=== PATIENT | male | born 1985 | race Caucasian/White ===

== ENCOUNTER 2017-06-03 14:42 | Emergency (ER) | payer MEDICARE, OTHER ==
[~2017-06-03] VITALS: Ht 180.3 cm; Wt 181.0 kg
[~2017-06-03 14:42] MED LIST: ALPR2TAB2 PO; ALPR2TAB7 PO; CLIN-80 PO; CLON-527 PO; CLON-528 PO; CYCL-1 PO; HALO1TAB PO; HALO2TAB PO; HALO5TAB PO; HYDR-569 PO; NAPR500T6 PO; OLAN5TAB26 PO; PHE12.5T PO; QUET25TA PO; QUET50TA PO; TRAZ-143 PO
[2017-06-03] MEDS ORDERED: IBUP-1984 PO (15:26)
[2017-06-03 15:37] VITALS: BP 144/87
== END 2017-06-03 15:42 | disposition home or self-care (01) ==
LOC: ER 14:42
DX: S93.401A Sprain of unspecified ligament of right ankle, initial encounter (principal); F12.10 Cannabis abuse, uncomplicated; G89.29 Other chronic pain; W01.0XXA Fall on same level from slipping, tripping and stumbling without subsequent striking against object, initial encounter; Y93.89 Activity, other specified; Y92.89 Other specified places as the place of occurrence of the external cause; Y99.8 Other external cause status; Z56.0 Unemployment, unspecified; Z98.890 Other specified postprocedural states
CPT/HCPCS: 73600; 99284; A6449

== ENCOUNTER 2017-09-15 12:51 | Emergency (ER) | payer MEDICARE, OTHER ==
[~2017-09-15] VITALS: Ht 177.8 cm; Wt 163.0 kg
[2017-09-15 13:02] VITALS: BP 140/98
== END 2017-09-15 13:38 | disposition home or self-care (01) ==
LOC: ER 12:52
DX: F41.9 Anxiety disorder, unspecified (principal); F20.9 Schizophrenia, unspecified; F32.9 Major depressive disorder, single episode, unspecified; G89.29 Other chronic pain; F12.10 Cannabis abuse, uncomplicated; F11.10 Opioid abuse, uncomplicated; Z56.0 Unemployment, unspecified; Z72.0 Tobacco use; Z88.8 Allergy status to other drugs, medicaments and biological substances; Z79.899 Other long term (current) drug therapy
CPT/HCPCS: 99284

== ENCOUNTER 2018-04-24 13:08 | Emergency (ER) | payer MEDICARE ==
[~2018-04-24] VITALS: Ht 177.8 cm; Wt 165.0 kg
[~2018-04-24 13:08] MED LIST changes: -CLIN-80 PO; +CLIN300C85 PO; +HYDR-4383 PO; -HYDR-569 PO; -TRAZ-143 PO; +TRAZ-218 PO
[2018-04-24 13:23] VITALS: BP 166/80
[2018-04-24] MEDS ORDERED: LORazepam 0.5 MG tablet PO PRN (13:40)
[2018-04-24] MEDS ORDERED: LORA0.5T PO (13:55)
== END 2018-04-24 14:05 | disposition home or self-care (01) ==
LOC: ER 13:08
DX: F41.9 Anxiety disorder, unspecified (principal); F32.9 Major depressive disorder, single episode, unspecified; F20.9 Schizophrenia, unspecified; F12.90 Cannabis use, unspecified, uncomplicated; F11.90 Opioid use, unspecified, uncomplicated; G89.29 Other chronic pain; Z56.0 Unemployment, unspecified; Z98.890 Other specified postprocedural states; Z88.1 Allergy status to other antibiotic agents; Z79.899 Other long term (current) drug therapy
CPT/HCPCS: 99284

== ENCOUNTER 2018-05-03 14:40 | Emergency (ER) | payer MEDICARE, MEDICAID ==
[~2018-05-03] VITALS: Ht 177.8 cm; Wt 161.0 kg
[~2018-05-03 14:40] MED LIST changes: +LORA0.5T PO
[2018-05-03] MEDS ORDERED: LORazepam 1 MG tablet PO ONE (18:40)
[2018-05-03 18:54] VITALS: BP 159/78
== END 2018-05-03 19:00 | disposition home or self-care (01) ==
LOC: ER 14:40
DX: F41.9 Anxiety disorder, unspecified (principal); G89.29 Other chronic pain; F32.9 Major depressive disorder, single episode, unspecified; F20.9 Schizophrenia, unspecified; F12.90 Cannabis use, unspecified, uncomplicated; F11.90 Opioid use, unspecified, uncomplicated; Z56.0 Unemployment, unspecified; Z98.890 Other specified postprocedural states; Z88.1 Allergy status to other antibiotic agents; Z79.2 Long term (current) use of antibiotics; Z79.899 Other long term (current) drug therapy
CPT/HCPCS: 99284

== ENCOUNTER 2018-08-07 12:15 | Emergency (ER) | payer MEDICARE, MEDICAID ==
[~2018-08-07] VITALS: Ht 180.3 cm; Wt 177.7 kg
[~2018-08-07 12:15] MED LIST changes: +CLIN-96 PO; -CLIN300C85 PO; -LORA0.5T PO
[2018-08-07 12:21] VITALS: BP 155/84
[2018-08-07] MEDS ORDERED: LIDOcaine 1% 30ml preserv. free vial IJ ONE (12:55)
== END 2018-08-07 13:11 | disposition home or self-care (01) ==
LOC: ER 12:16
DX: M79.605 Pain in left leg (principal); M79.604 Pain in right leg; E11.9 Type 2 diabetes mellitus without complications; G89.29 Other chronic pain; M54.9 Dorsalgia, unspecified; F12.90 Cannabis use, unspecified, uncomplicated; F11.90 Opioid use, unspecified, uncomplicated; Z56.0 Unemployment, unspecified; Z88.1 Allergy status to other antibiotic agents; Z79.4 Long term (current) use of insulin
CPT/HCPCS: 99281; J3490; 99282

== ENCOUNTER → 2018-12-27 | Emergency (ER) | payer MEDICARE, MEDICAID ==
[~2018-12-27] VITALS: Ht 179.1 cm; Wt 172.7 kg
[~2018-12-27] MED LIST changes: +DOXY100C2 PO; +DOXYCYCLINE 100MG CAPSULE PO STA; +INSU100I31 SQ; +LIDOcaine 1% w/epiNEPHrine 1:200,000 30ml vial IM ONE; +LURA80TA3 PO; +METF500T PO; +NALO4SPR NAS; -PHE12.5T PO; +PROM12.512 PO; +SULF1TAB49 PO; +TETanus/Pertussis (Acell)/Diphther VAC/PF (Tdap-Adult) 0.5ml syringe IM ONE; -TRAZ-218 PO; +TRAZ-251 PO; +sulfamethoxazole/trimethoprim DS (800/160mg) tablet PO ONE
--- NOTE | 2018-12-27 21:16 | NUR ---
PT HAS BEEN CLEAN FROM HEROIN FOR A YEAR AND HALF, THEN STARTED USING HEROIN AGAIN ABOUT A MONTH AGO.. PT HAVING AUDIO HALLUCINATION. PT SMOKED HEROIN BEFORE HE ARRIVED TO ER. PT C/O EXTREME ANXIETY AT THIS TIME
[2018-12-27 22:09] VITALS: BP 150/74
== END | disposition home or self-care (01) ==
LOC: ER 20:45
DX: L02.413 Cutaneous abscess of right upper limb (principal); L02.415 Cutaneous abscess of right lower limb; L03.113 Cellulitis of right upper limb; L03.115 Cellulitis of right lower limb; E11.9 Type 2 diabetes mellitus without complications; G89.29 Other chronic pain; F32.9 Major depressive disorder, single episode, unspecified; F41.9 Anxiety disorder, unspecified; F52.9 Unspecified sexual dysfunction not due to a substance or known physiological condition; F11.90 Opioid use, unspecified, uncomplicated; Z88.1 Allergy status to other antibiotic agents; Z79.899 Other long term (current) drug therapy; Z79.2 Long term (current) use of antibiotics; Z56.0 Unemployment, unspecified; Z98.890 Other specified postprocedural states; Z87.09 Personal history of other diseases of the respiratory system
CPT/HCPCS: 10061; 82948; 90471; 99284

== ENCOUNTER 2019-01-13 11:15 | Emergency (ER) | payer MEDICARE, MEDICAID ==
[~2019-01-13] VITALS: Ht 179.1 cm; Wt 172.0 kg
[~2019-01-13 11:15] MED LIST changes: -DOXY100C2 PO; -DOXYCYCLINE 100MG CAPSULE PO STA; -INSU100I31 SQ; -LIDOcaine 1% w/epiNEPHrine 1:200,000 30ml vial IM ONE; -LURA80TA3 PO; -METF500T PO; -SULF1TAB49 PO; -TETanus/Pertussis (Acell)/Diphther VAC/PF (Tdap-Adult) 0.5ml syringe IM ONE; -sulfamethoxazole/trimethoprim DS (800/160mg) tablet PO ONE
[2019-01-13 11:27] VITALS: BP 146/83
[2019-01-13] MEDS ORDERED: INSU100I31 SQ (12:29)
[2019-01-13] MEDS ORDERED: METF500T PO (12:29)
[2019-01-13] MEDS ORDERED: LURA80TA3 PO (12:29)
== END 2019-01-13 12:42 | disposition home or self-care (01) ==
LOC: ER 11:16
DX: E11.9 Type 2 diabetes mellitus without complications (principal); Z76.0 Encounter for issue of repeat prescription; G89.29 Other chronic pain; F17.200 Nicotine dependence, unspecified, uncomplicated; F11.90 Opioid use, unspecified, uncomplicated; Z56.0 Unemployment, unspecified; Z98.890 Other specified postprocedural states; Z88.1 Allergy status to other antibiotic agents; Z79.899 Other long term (current) drug therapy; Z79.4 Long term (current) use of insulin
CPT/HCPCS: 82948; 99283

== ENCOUNTER 2019-03-18 03:44 | Emergency (ER) | payer MEDICARE, MEDICAID ==
[~2019-03-18] VITALS: Ht 172.7 cm; Wt 153.0 kg
[~2019-03-18 03:44] MED LIST changes: +CLIN-90 PO; -CLIN-96 PO; +INSU100I31 SQ; +LURA80TA3 PO
[2019-03-18] MEDS ORDERED: LORazepam 2 mg/ml vial IV ONE ×3 (04:05→05:25)
[2019-03-18] MEDS ORDERED: normal saline 1000ML IV soln IVB ONE ×2 (04:05)
[2019-03-18] MEDS ORDERED: diphenhydrAMINE 50 mg/ml inj IV ONE (04:05)
[2019-03-18] MEDS ORDERED: metoclopramide 5 mg/ml inj IV ONE (04:05)
[2019-03-18] MEDS ORDERED: buprenorphine/naloxone 8mg/2mg SL tablet SL STA (04:08)
[2019-03-18] MEDS ORDERED: buprenorphine/naloxone 8MG-2MG SUBlingual film SL STA (04:48)
[2019-03-18] MEDS ORDERED: ziprasidone 20mg capsule PO ONE (04:50)
[2019-03-18 04:55] LABS: BASOPHILS # (AUTO) 0.1 X10'3 (0-0.2); BASOPHILS % (AUTO) 0.9 % (0-1); EOSINOPHILS # (AUTO) 0.1 X10'3 (0-0.9); EOSINOPHILS % (AUTO) 0.8 % (0-6); HEMOGLOBIN 14.6 g/dl (14.0-17.9); LYMPHOCYTES # (AUTO) 2.4 X10'3 (1.1-4.8); MEAN CORPUSCULAR VOLUME 91.1 FL (78-98); MEAN PLATELET VOLUME 8.8 FL (7.4-10.4); MONOCYTES # (AUTO) 0.8 X10'3 (0-0.9); MONOCYTES % (AUTO) 7.6 % (2-12); NEUTROPHILS # (AUTO) 7.3 X10'3 (1.8-7.7); NEUTROPHILS % (AUTO) 68.7 % (42-75); PLATELET COUNT 340 X10'3 (140-440); RED BLOOD COUNT 4.72 X10'6 (4.70-6.10); RED CELL DISTRIBUTION WIDTH 14.4 % (11.5-14.5); WHITE BLOOD COUNT 10.7 X10'3 (4.5-11.0)
[2019-03-18 04:57] LABS: ALANINE AMINOTRANSFERASE 51 U/L (12-78); ALBUMIN 3.5 G/DL (3.4-5.0); ALBUMIN/GLOBULIN RATIO 0.9 (1.1-1.5); ALKALINE PHOSPHATASE 84 IU/L (46-116); ANION GAP 11 (8-16); ASPARTATE AMINO TRANSFERASE 33 U/L (10-37); BILIRUBIN,TOTAL 0.5 MG/DL (0.1-1.0); BLOOD UREA NITROGEN 14 MG/DL (7-18); BUN/CREATININE RATIO 18.2 (5.4-32.0); CHLORIDE 106 MMOL/L (99-107); CREATININE 0.77 MG/DL (0.60-1.10); GLUCOSE 134 MG/DL (70-104); LIPASE 108 U/L (73-393); POTASSIUM 3.8 MMOL/L (3.5-5.1); SODIUM 142 MMOL/L (135-145); TOTAL CARBON DIOXIDE 25.4 MMOL/L (24-32); TOTAL PROTEIN 7.5 G/DL (6.4-8.2); eGFR > 90 ML/MIN
[2019-03-18] MEDS ORDERED: CLON0.2T PO (05:05)
[2019-03-18] MEDS ORDERED: ONDA4TAB12 PO (05:05)
[2019-03-18] MEDS ORDERED: benztropine 1 mg/ml 2ml ampule IV ONE (05:25)
--- NOTE | 2019-03-18 05:37 | NUR ---
Pt's mother contact info: [phone] (Ruth)
--- NOTE | 2019-03-18 05:45 | NUR ---
Two call outs made to Ruth dixon patient and need for transportation. Awaiting call back.
--- NOTE | 2019-03-18 05:52 | NUR ---
Spoke with patient regarding current living arrangements. He has been living out on the streets. Information re the [facility] provided and patient affirms that he is familiar with them. He understands that the [facility] offers housing within specific time frame. Pt. agrees to have a ride to location near/around the [facility] for now.
== END 2019-03-18 06:14 | disposition home or self-care (01) ==
LOC: ER 03:45
DX: F11.23 Opioid dependence with withdrawal (principal); R11.2 Nausea with vomiting, unspecified; R19.7 Diarrhea, unspecified; E11.9 Type 2 diabetes mellitus without complications; G89.29 Other chronic pain; F41.9 Anxiety disorder, unspecified; F32.9 Major depressive disorder, single episode, unspecified; F20.9 Schizophrenia, unspecified; F17.210 Nicotine dependence, cigarettes, uncomplicated; Z56.0 Unemployment, unspecified; Z88.1 Allergy status to other antibiotic agents; Z79.4 Long term (current) use of insulin; Z79.899 Other long term (current) drug therapy
CPT/HCPCS: 36415; 80053; 83690; 85025; 96361; 96374; 96375; 96376; 99283; J0515; J1200; J2060; J2765; J7030

== ENCOUNTER 2019-03-29 20:39 | Emergency (ER) | payer MEDICARE, MEDICAID ==
[~2019-03-29] VITALS: Ht 177.8 cm; Wt 151.9 kg
[~2019-03-29 20:39] MED LIST changes: +CLON0.2T PO; +ONDA4TAB12 PO
[2019-03-29 20:53] VITALS: BP 147/78
== END 2019-03-29 21:46 | disposition home or self-care (01) ==
LOC: ER 20:40
DX: Z02.89 Encounter for other administrative examinations (principal); E11.9 Type 2 diabetes mellitus without complications; G89.29 Other chronic pain; F41.9 Anxiety disorder, unspecified; F32.9 Major depressive disorder, single episode, unspecified; F20.9 Schizophrenia, unspecified; F11.90 Opioid use, unspecified, uncomplicated; Z56.0 Unemployment, unspecified; Z98.890 Other specified postprocedural states; Z79.899 Other long term (current) drug therapy; Z88.1 Allergy status to other antibiotic agents; Z79.4 Long term (current) use of insulin
CPT/HCPCS: 99281

== ENCOUNTER 2019-05-13 13:44 | Emergency (ER) | payer MEDICARE, MEDICAID ==
[~2019-05-13] VITALS: Ht 179.1 cm; Wt 148.0 kg
[2019-05-13 14:06] VITALS: BP 130/79
[2019-05-13] MEDS ORDERED: BACDS PO (15:13)
[2019-05-13] MEDS ORDERED: LURA80TA3 PO (15:13)
== END 2019-05-13 15:37 | disposition home or self-care (01) ==
LOC: ER 13:44
DX: L03.114 Cellulitis of left upper limb (principal); E11.9 Type 2 diabetes mellitus without complications; G89.29 Other chronic pain; F41.9 Anxiety disorder, unspecified; F32.9 Major depressive disorder, single episode, unspecified; G47.30 Sleep apnea, unspecified; F11.90 Opioid use, unspecified, uncomplicated; Z76.0 Encounter for issue of repeat prescription; Z56.0 Unemployment, unspecified; Z88.1 Allergy status to other antibiotic agents; Z79.2 Long term (current) use of antibiotics; Z79.4 Long term (current) use of insulin; Z79.899 Other long term (current) drug therapy
CPT/HCPCS: 99284

== ENCOUNTER 2019-06-06 00:11 | Emergency (ER) | payer MEDICARE, MEDICAID ==
[~2019-06-06] VITALS: Ht 177.8 cm; Wt 146.6 kg
[2019-06-06 00:26] VITALS: BP 129/83
[2019-06-06] MEDS ORDERED: GABA-532 PO (00:46)
[2019-06-06] MEDS ORDERED: gabapentin 300mg capsule PO ONE (00:55)
== END 2019-06-06 00:58 | disposition home or self-care (01) ==
LOC: ER 00:12
DX: G25.81 Restless legs syndrome (principal); E11.9 Type 2 diabetes mellitus without complications; G47.30 Sleep apnea, unspecified; G89.29 Other chronic pain; F41.9 Anxiety disorder, unspecified; F32.9 Major depressive disorder, single episode, unspecified; F20.9 Schizophrenia, unspecified; F11.90 Opioid use, unspecified, uncomplicated; Z76.0 Encounter for issue of repeat prescription; Z98.890 Other specified postprocedural states; Z56.0 Unemployment, unspecified; Z88.1 Allergy status to other antibiotic agents; Z79.4 Long term (current) use of insulin; Z79.899 Other long term (current) drug therapy
CPT/HCPCS: 99283

== ENCOUNTER 2019-06-12 00:04 | Emergency (ER) | payer MEDICARE, MEDICAID ==
[~2019-06-12] VITALS: Ht 177.8 cm; Wt 145.5 kg
[~2019-06-12 00:04] MED LIST changes: +GABA-532 PO
[2019-06-12] MEDS ORDERED: piperacillin/tazo 3.375gm/50ml 50 ML IV ONE (01:20)
[2019-06-12] MEDS ORDERED: diphenhydrAMINE 50 mg/ml inj IV ONE (01:25)
[2019-06-12] MEDS ORDERED: LEVO750T21 PO (01:30)
[2019-06-12] MEDS ORDERED: SULF1TAB49 PO (01:30)
[2019-06-12 01:59] VITALS: BP 113/54
== END 2019-06-12 02:13 | disposition home or self-care (01) ==
LOC: ER 00:04
DX: L03.114 Cellulitis of left upper limb (principal); L02.413 Cutaneous abscess of right upper limb; G47.30 Sleep apnea, unspecified; E11.9 Type 2 diabetes mellitus without complications; G89.29 Other chronic pain; F41.9 Anxiety disorder, unspecified; F32.9 Major depressive disorder, single episode, unspecified; F20.9 Schizophrenia, unspecified; F17.200 Nicotine dependence, unspecified, uncomplicated; F11.90 Opioid use, unspecified, uncomplicated; Z98.890 Other specified postprocedural states; Z56.0 Unemployment, unspecified; Z88.1 Allergy status to other antibiotic agents; Z79.2 Long term (current) use of antibiotics; Z79.899 Other long term (current) drug therapy
CPT/HCPCS: 36415; 82948; 87040; 96365; 96375; 99283; J1200; J2543

== ENCOUNTER 2019-06-16 12:05 | Emergency (ER) | payer MEDICARE, MEDICAID ==
[~2019-06-16] VITALS: Ht 177.8 cm; Wt 126.0 kg
[~2019-06-16 12:05] MED LIST changes: +LEVO750T21 PO; +SULF1TAB49 PO
[2019-06-16 12:17] VITALS: BP 124/72
[2019-06-16] MEDS ORDERED: GABA-532 PO (12:59)
[2019-06-16] MEDS ORDERED: CLON-527 PO (12:59)
[2019-06-16] MEDS ORDERED: LURA80TA3 PO (12:59)
== END 2019-06-16 13:17 | disposition home or self-care (01) ==
LOC: ER 12:06
DX: F41.9 Anxiety disorder, unspecified (principal); E11.9 Type 2 diabetes mellitus without complications; G89.29 Other chronic pain; F32.9 Major depressive disorder, single episode, unspecified; F20.9 Schizophrenia, unspecified; F17.200 Nicotine dependence, unspecified, uncomplicated; F11.10 Opioid abuse, uncomplicated; Z56.0 Unemployment, unspecified; Z76.0 Encounter for issue of repeat prescription; Z88.1 Allergy status to other antibiotic agents; Z79.899 Other long term (current) drug therapy
CPT/HCPCS: 99283

== ENCOUNTER 2019-07-05 01:50 | Emergency (ER) | payer MEDICARE, MEDICAID ==
[~2019-07-05] VITALS: Ht 177.8 cm; Wt 145.4 kg
[~2019-07-05 01:50] MED LIST changes: -LEVO750T21 PO; -SULF1TAB49 PO
[2019-07-05 01:59] VITALS: BP 149/131
== END 2019-07-05 03:29 | disposition home or self-care (01) ==
LOC: ER 01:51
DX: M54.9 Dorsalgia, unspecified (principal); G47.30 Sleep apnea, unspecified; E11.9 Type 2 diabetes mellitus without complications; G89.29 Other chronic pain; F41.9 Anxiety disorder, unspecified; F32.9 Major depressive disorder, single episode, unspecified; F20.9 Schizophrenia, unspecified; F11.90 Opioid use, unspecified, uncomplicated; Z98.890 Other specified postprocedural states; Z56.0 Unemployment, unspecified; Z88.1 Allergy status to other antibiotic agents; Z79.2 Long term (current) use of antibiotics; Z79.899 Other long term (current) drug therapy
CPT/HCPCS: 99281

== ENCOUNTER 2019-08-17 18:26 | Emergency (ER) | payer MEDICARE, MEDICAID ==
[~2019-08-17] VITALS: Ht 177.8 cm; Wt 145.4 kg
[~2019-08-17 18:26] MED LIST changes: -CLIN-90 PO; +CLIN-97 PO
[2019-08-17 18:32] VITALS: BP 122/77
[2019-08-17] MEDS ORDERED: ibuprofen tablet 400 MG TABLET PO ONE (18:50)
[2019-08-17] MEDS ORDERED: IBUP-1984 PO (18:51)
[2019-08-17] MEDS ORDERED: BENZ-16 PO (18:51)
[2019-08-17] MEDS ORDERED: ALBU8HFA PO (19:02)
== END 2019-08-17 19:05 | disposition home or self-care (01) ==
LOC: ER 18:26
DX: J06.9 Acute upper respiratory infection, unspecified (principal); R05 Cough; E11.9 Type 2 diabetes mellitus without complications; G89.29 Other chronic pain; F41.9 Anxiety disorder, unspecified; F32.9 Major depressive disorder, single episode, unspecified; F20.9 Schizophrenia, unspecified; F11.90 Opioid use, unspecified, uncomplicated; Z98.890 Other specified postprocedural states; Z56.0 Unemployment, unspecified; Z88.1 Allergy status to other antibiotic agents; Z79.2 Long term (current) use of antibiotics; Z79.4 Long term (current) use of insulin; Z79.899 Other long term (current) drug therapy
CPT/HCPCS: 99283

== ENCOUNTER 2019-08-25 18:59 | Emergency (ER) | payer MEDICARE, MEDICAID ==
[~2019-08-25] VITALS: Ht 177.8 cm; Wt 145.4 kg
[~2019-08-25 18:59] MED LIST changes: +ALBU8HFA PO; +BENZ-16 PO
--- NOTE | 2019-08-25 19:11 | NUR ---
PER TRIAGE NURSE PATIENT REFUSING TO WEAR PPE. PATIENT EDUCATED TO RISK CONTINUES TO REFUSE PPE. PATIENT SITTING ON GURNY EATING COOKIES AT THIS TIME.
[2019-08-25] MEDS ORDERED: clindamycin phosphate 150mg/ml inj. IM ONE (19:15)
[2019-08-25 19:49] LABS: BASOPHILS # (AUTO) 0.2 X10'3 (0-0.2); BASOPHILS % (AUTO) 1.4 % (0-1); EOSINOPHILS # (AUTO) 0.4 X10'3 (0-0.9); EOSINOPHILS % (AUTO) 3.4 % (0-6); HEMOGLOBIN 14.7 g/dl (14.0-17.9); LYMPHOCYTES % (AUTO) 8.4 % (21-51); MEAN CORPUSCULAR HEMOGLOBIN 29.6 PG (27.0-31.0); MEAN CORPUSCULAR HGB CONC 33.5 g/dL (33.0-36.5); MEAN CORPUSCULAR VOLUME 88.3 FL (78-98); MONOCYTES # (AUTO) 0.5 X10'3 (0-0.9); MONOCYTES % (AUTO) 4.3 % (2-12); NEUTROPHILS # (AUTO) 9.8 X10'3 (1.8-7.7); NEUTROPHILS % (AUTO) 82.5 % (42-75); PLATELET COUNT 358 X10'3 (140-440); RED BLOOD COUNT 4.98 X10'6 (4.70-6.10); RED CELL DISTRIBUTION WIDTH 14.4 % (11.5-14.5); WHITE BLOOD COUNT 11.9 X10'3 (4.5-11.0)
[2019-08-25 20:03] LABS: ALANINE AMINOTRANSFERASE 45 U/L (12-78); ALBUMIN 3.2 G/DL (3.4-5.0); ALBUMIN/GLOBULIN RATIO 0.7 (1.1-1.5); ALKALINE PHOSPHATASE 78 IU/L (46-116); ANION GAP 6 (8-16); ASPARTATE AMINO TRANSFERASE 27 U/L (10-37); BILIRUBIN,TOTAL 0.8 MG/DL (0.1-1.0); BLOOD UREA NITROGEN 13 MG/DL (7-18); BUN/CREATININE RATIO 12.1 (5.4-32.0); CALCIUM 8.9 MG/DL (8.5-10.1); CHLORIDE 103 MMOL/L (99-107); CREATININE 1.07 MG/DL (0.60-1.10); GLUCOSE 143 MG/DL (70-104); POTASSIUM 3.3 MMOL/L (3.5-5.1); SODIUM 137 MMOL/L (135-145); TOTAL CARBON DIOXIDE 28.3 MMOL/L (24-32); TOTAL PROTEIN 7.5 G/DL (6.4-8.2); eGFR 79 ML/MIN
[2019-08-25] MEDS ORDERED: normal saline 1000ml 1,000 ML IV ONE ×2 (20:15→20:25)
--- NOTE | 2019-08-25 20:15 | NUR ---
ULTRASOUND AT BEDSIDE
[2019-08-25] MEDS ORDERED: clindamycin 600mg/D5W 50ml 50 ML IV ONE (20:20)
[2019-08-25] MEDS ORDERED: CLIN-97 PO (21:25)
[2019-08-25] MEDS ORDERED: iohexol 350MG/ML 100ml bottle IV ONE (21:27)
[2019-08-25 21:31] VITALS: BP 122/54
--- NOTE | 2019-08-25 22:37 | NUR ---
PATIENT ASSISTED TO RESTROOM BY ANOTHER RN, WENT TO CHECK ON PATIENT APROX 15 MIN LATER. PATIENT NOT IN RESTROOM, WAS NOT SEEN LEAVING THROUGH THE ER LOBBY, FRONT ENTRANCE OR BY SCREENERS AT AMBULANCE BAY. SECURITY NOTIFIED AND LENA CONTACTED.
== END 2019-08-25 22:45 | disposition left against medical advice (07) ==
LOC: ER 18:59
DX: L03.113 Cellulitis of right upper limb (principal); I77.0 Arteriovenous fistula, acquired; G47.30 Sleep apnea, unspecified; E11.9 Type 2 diabetes mellitus without complications; G89.29 Other chronic pain; F41.9 Anxiety disorder, unspecified; F32.9 Major depressive disorder, single episode, unspecified; F11.90 Opioid use, unspecified, uncomplicated; F20.9 Schizophrenia, unspecified; Z98.890 Other specified postprocedural states; Z56.0 Unemployment, unspecified; Z88.8 Allergy status to other drugs, medicaments and biological substances; Z79.2 Long term (current) use of antibiotics; Z79.4 Long term (current) use of insulin; Z79.899 Other long term (current) drug therapy
CPT/HCPCS: 36415; 73206; 80053; 83605; 84145; 85025; 87040; 93971; 96365; 99285; J7030; Q9967; J3490

== ENCOUNTER 2019-08-30 09:08 | Emergency (ER) | payer MEDICARE, MEDICAID ==
[~2019-08-30] VITALS: Ht 177.8 cm; Wt 149.1 kg
[~2019-08-30 09:08] MED LIST changes: -BENZ-16 PO
[2019-08-30 09:11] VITALS: BP 152/76
[2019-08-30] MEDS ORDERED: ondansetron 4mg rapidly disintigrating tab PO ONE (09:25)
[2019-08-30] MEDS ORDERED: ONDA4TAB12 PO (09:27)
[2019-08-30] MEDS ORDERED: CLIN-97 PO (09:27)
== END 2019-08-30 09:44 | disposition home or self-care (01) ==
LOC: ER 09:08
DX: F11.23 Opioid dependence with withdrawal (principal); L03.114 Cellulitis of left upper limb; L03.113 Cellulitis of right upper limb; G47.30 Sleep apnea, unspecified; E11.9 Type 2 diabetes mellitus without complications; G89.29 Other chronic pain; F41.9 Anxiety disorder, unspecified; F32.9 Major depressive disorder, single episode, unspecified; F20.9 Schizophrenia, unspecified; Z98.890 Other specified postprocedural states; Z56.0 Unemployment, unspecified; Z88.1 Allergy status to other antibiotic agents; Z79.2 Long term (current) use of antibiotics; Z79.899 Other long term (current) drug therapy
CPT/HCPCS: 99283

== ENCOUNTER 2019-09-01 06:17 | Emergency (ER) | payer MEDICARE, MEDICAID ==
[~2019-09-01] VITALS: Ht 177.8 cm; Wt 145.4 kg
[2019-09-01] MEDS ORDERED: ondansetron 4mg rapidly disintigrating tab PO ONE (06:45)
[2019-09-01] MEDS ORDERED: buprenorphine/naloxone 8MG-2MG SUBlingual film SL SCH (06:45)
[2019-09-01] MEDS ORDERED: buprenorphine/naloxone 8MG-2MG SUBlingual film SL ONE (06:45)
[2019-09-01 06:54] VITALS: BP 141/75
== END 2019-09-01 06:56 | disposition home or self-care (01) ==
LOC: ER 06:18
DX: F11.23 Opioid dependence with withdrawal (principal); G47.30 Sleep apnea, unspecified; E11.9 Type 2 diabetes mellitus without complications; G89.29 Other chronic pain; F41.9 Anxiety disorder, unspecified; F32.9 Major depressive disorder, single episode, unspecified; R11.10 Vomiting, unspecified; F20.9 Schizophrenia, unspecified; Z98.890 Other specified postprocedural states; Z56.0 Unemployment, unspecified; Z88.8 Allergy status to other drugs, medicaments and biological substances; Z79.2 Long term (current) use of antibiotics; Z79.4 Long term (current) use of insulin; Z79.899 Other long term (current) drug therapy
CPT/HCPCS: 99283

== ENCOUNTER 2019-09-09 16:39 | Emergency (ER) | payer MEDICARE, MEDICAID ==
[~2019-09-09] VITALS: Ht 177.8 cm; Wt 145.5 kg
[2019-09-09 16:50] VITALS: BP 154/86
[2019-09-09] MEDS ORDERED: LURA80TA3 PO ×2 (17:48→19:22)
[2019-09-09] MEDS ORDERED: buprenorphine/naloxone 8MG-2MG SUBlingual film SL SCH (17:50)
== END 2019-09-09 18:20 | disposition home or self-care (01) ==
LOC: ER 16:39
DX: F20.9 Schizophrenia, unspecified (principal); G47.30 Sleep apnea, unspecified; E11.9 Type 2 diabetes mellitus without complications; G89.29 Other chronic pain; F41.9 Anxiety disorder, unspecified; F32.9 Major depressive disorder, single episode, unspecified; F17.200 Nicotine dependence, unspecified, uncomplicated; Z98.890 Other specified postprocedural states; F11.90 Opioid use, unspecified, uncomplicated; Z56.0 Unemployment, unspecified; Z88.1 Allergy status to other antibiotic agents; Z79.2 Long term (current) use of antibiotics; Z79.899 Other long term (current) drug therapy
CPT/HCPCS: 99281

== ENCOUNTER 2019-09-14 11:59 | Emergency (ER) | payer MEDICARE, MEDICAID ==
[~2019-09-14] VITALS: Ht 177.8 cm; Wt 145.0 kg
[2019-09-14 12:12] VITALS: BP 136/86
[2019-09-14] MEDS ORDERED: LORazepam 1 MG tablet PO ONE (13:50)
[2019-09-14] MEDS ORDERED: LURA40TA3 PO (14:01)
[2019-09-14] MEDS ORDERED: CLIN-97 PO (14:06)
== END 2019-09-14 14:15 | disposition home or self-care (01) ==
LOC: ER 12:00
DX: F11.20 Opioid dependence, uncomplicated (principal); Z76.0 Encounter for issue of repeat prescription; E11.9 Type 2 diabetes mellitus without complications; G89.29 Other chronic pain; F41.9 Anxiety disorder, unspecified; F32.9 Major depressive disorder, single episode, unspecified; F20.9 Schizophrenia, unspecified; F17.200 Nicotine dependence, unspecified, uncomplicated; Z98.890 Other specified postprocedural states; Z56.0 Unemployment, unspecified; Z88.1 Allergy status to other antibiotic agents; Z79.4 Long term (current) use of insulin; Z79.2 Long term (current) use of antibiotics; Z79.899 Other long term (current) drug therapy
CPT/HCPCS: 99281; 99282; 99283

== ENCOUNTER 2019-09-15 20:43 | Emergency (ER) | payer MEDICARE, MEDICAID ==
[~2019-09-15 20:43] MED LIST changes: +LURA40TA3 PO
--- NOTE | 2019-09-15 20:54 | NUR ---
during triage interview, patient became agitated when asked why he keeps losing the meds that the doctors at [facility] have recently prescribed. patient left before triage
== END 2019-09-15 20:57 | disposition left against medical advice (07) ==
LOC: ER 20:43
DX: Z76.0 Encounter for issue of repeat prescription (principal); Z53.21 Procedure and treatment not carried out due to patient leaving prior to being seen by health care provider

== ENCOUNTER 2019-09-26 04:16 | Emergency (ER) | payer MEDICARE, MEDICAID ==
[~2019-09-26] VITALS: Ht 177.8 cm; Wt 135.4 kg
[~2019-09-26 04:16] MED LIST changes: -ALBU8HFA PO
[2019-09-26 04:24] VITALS: BP 160/102
[2019-09-26] MEDS ORDERED: LURA80TA3 PO ×2 (05:22→11:16)
[2019-09-26] MEDS ORDERED: lurasidone 60mg tablet PO STA (05:27)
[2019-09-26] MEDS ORDERED: lurasidone 20mg tablet PO STA (05:36)
== END 2019-09-26 05:47 | disposition home or self-care (01) ==
LOC: ER 04:17
DX: F20.9 Schizophrenia, unspecified (principal); E11.9 Type 2 diabetes mellitus without complications; G89.29 Other chronic pain; F41.9 Anxiety disorder, unspecified; F32.9 Major depressive disorder, single episode, unspecified; F17.200 Nicotine dependence, unspecified, uncomplicated; Z98.890 Other specified postprocedural states; Z56.0 Unemployment, unspecified; Z88.1 Allergy status to other antibiotic agents; Z79.2 Long term (current) use of antibiotics; Z79.4 Long term (current) use of insulin; Z79.899 Other long term (current) drug therapy
CPT/HCPCS: 99283

== ENCOUNTER 2019-09-26 09:25 | Emergency (ER) | payer MEDICARE, MEDICAID ==
[~2019-09-26] VITALS: Ht 177.8 cm; Wt 135.0 kg
--- NOTE | 2019-09-26 10:13 | NUR ---
PT LOOKED ANXIOUS ,UNABLE TO STAY STILL KEEP ON CHANGING POSITION FROM LYING DOWN -STAND UP WALK AROUND WHEN ASKED PT STATED THAT "I FEEL WEIRD ,SOMETHING IS WEIRD ,I AM HAVING INFECTION IN MY ARMS'.ASKED WHETHER HE FEELS LIKE HE IS GOING TO HURT HIMSELF OR ANY PLAN OR PRIOR HX ,PT DENIED.
--- NOTE | 2019-09-26 10:26 | NUR ---
pt assed,pt obey commands,pt given water to drink.eating jello,pt deneis any pain ,c/o lower extremity pain due to walking all day on streets as per pt.
[2019-09-26 10:30] LABS: BASOPHILS % (AUTO) 0.5 % (0-1); EOSINOPHILS # (AUTO) 0.1 X10'3 (0-0.9); EOSINOPHILS % (AUTO) 0.8 % (0-6); HEMATOCRIT 45.5 % (42.0-52.0); HEMOGLOBIN 15.4 g/dl (14.0-17.9); LYMPHOCYTES # (AUTO) 1.8 X10'3 (1.1-4.8); MEAN CORPUSCULAR HEMOGLOBIN 30.3 PG (27.0-31.0); MEAN CORPUSCULAR HGB CONC 33.9 g/dL (33.0-36.5); MEAN CORPUSCULAR VOLUME 89.5 FL (78-98); MEAN PLATELET VOLUME 8.3 FL (7.4-10.4); MONOCYTES # (AUTO) 0.6 X10'3 (0-0.9); MONOCYTES % (AUTO) 6.5 % (2-12); NEUTROPHILS # (AUTO) 7.1 X10'3 (1.8-7.7); NEUTROPHILS % (AUTO) 73.2 % (42-75); PLATELET COUNT 280 X10'3 (140-440); RED BLOOD COUNT 5.08 X10'6 (4.70-6.10); RED CELL DISTRIBUTION WIDTH 15.2 % (11.5-14.5); WHITE BLOOD COUNT 9.7 X10'3 (4.5-11.0)
[2019-09-26 10:48] LABS: ALBUMIN 3.8 G/DL (3.4-5.0); ANION GAP 9 (8-16); BLOOD UREA NITROGEN 7 MG/DL (7-18); CALCIUM 9.4 MG/DL (8.5-10.1); CHLORIDE 104 MMOL/L (99-107); CREATININE 0.78 MG/DL (0.60-1.10); GLUCOSE 132 MG/DL (70-104); POTASSIUM 3.8 MMOL/L (3.5-5.1); SODIUM 140 MMOL/L (135-145); TOTAL CARBON DIOXIDE 27.2 MMOL/L (24-32); eGFR > 90 ML/MIN
[2019-09-26 11:02] VITALS: BP 135/67
--- NOTE | 2019-09-26 11:04 | NUR ---
PT URINE SAMPLE COLLECTED ,PT VITALS SATBLE AND DOCUMENTED.PT DENIES ANY CONCERN,OBEY COMMANDS.LIGHT SWITCHED OFF PER PT REQUEST NOW RESTING IN BED.
[2019-09-26] MEDS ORDERED: LURA80TA3 PO (11:16)
== END 2019-09-26 11:20 | disposition home or self-care (01) ==
LOC: ER 09:26
DX: R42 Dizziness and giddiness (principal); G47.30 Sleep apnea, unspecified; E11.9 Type 2 diabetes mellitus without complications; G89.29 Other chronic pain; F41.9 Anxiety disorder, unspecified; F32.9 Major depressive disorder, single episode, unspecified; F20.9 Schizophrenia, unspecified; F11.90 Opioid use, unspecified, uncomplicated; Z98.890 Other specified postprocedural states; Z56.0 Unemployment, unspecified; Z59.0 Homelessness; Z88.8 Allergy status to other drugs, medicaments and biological substances; Z79.4 Long term (current) use of insulin; Z79.899 Other long term (current) drug therapy
CPT/HCPCS: 36415; 80048; 85025; 93005; 99284

== ENCOUNTER 2019-09-28 20:21 | Emergency (ER) | payer MEDICARE, MEDICAID ==
[~2019-09-28] VITALS: Ht 177.8 cm; Wt 139.1 kg
[2019-09-28 20:30] VITALS: BP 143/93
[2019-09-28] MEDS ORDERED: gabapentin 300mg capsule PO ONE (22:20)
[2019-09-28] MEDS ORDERED: GABA-530 PO (22:34)
[2019-09-28] MEDS ORDERED: LURA80TA3 PO (22:35)
== END 2019-09-28 23:05 | disposition home or self-care (01) ==
LOC: ER 20:21
DX: F20.9 Schizophrenia, unspecified (principal); Z76.0 Encounter for issue of repeat prescription; F41.9 Anxiety disorder, unspecified; F31.9 Bipolar disorder, unspecified; E11.9 Type 2 diabetes mellitus without complications; G89.29 Other chronic pain; Z59.0 Homelessness; Z56.0 Unemployment, unspecified; Z98.890 Other specified postprocedural states; Z79.899 Other long term (current) drug therapy; Z88.1 Allergy status to other antibiotic agents
CPT/HCPCS: 99283

== ENCOUNTER 2019-10-03 21:22 | Emergency (ER) | payer MEDICARE, MEDICAID ==
[~2019-10-03] VITALS: Ht 177.8 cm; Wt 145.4 kg
[~2019-10-03 21:22] MED LIST changes: +GABA-530 PO
[2019-10-03] MEDS ORDERED: clonazePAM 1mg tablet PO ONE (23:10)
[2019-10-03] MEDS ORDERED: lurasidone 20mg tablet PO STA (23:10)
[2019-10-03] MEDS ORDERED: LURA80TA3 PO (23:21)
[2019-10-03 23:43] VITALS: BP 152/75
== END 2019-10-03 23:44 | disposition home or self-care (01) ==
LOC: ER 21:22
DX: F20.9 Schizophrenia, unspecified (principal); G47.30 Sleep apnea, unspecified; E11.9 Type 2 diabetes mellitus without complications; G89.29 Other chronic pain; F41.9 Anxiety disorder, unspecified; F11.90 Opioid use, unspecified, uncomplicated; F32.9 Major depressive disorder, single episode, unspecified; F17.200 Nicotine dependence, unspecified, uncomplicated; Z56.0 Unemployment, unspecified; Z59.0 Homelessness; Z76.0 Encounter for issue of repeat prescription; Z00.00 Encounter for general adult medical examination without abnormal findings; Z91.19 Patient's noncompliance with other medical treatment and regimen; Z98.890 Other specified postprocedural states; Z88.8 Allergy status to other drugs, medicaments and biological substances; Z79.4 Long term (current) use of insulin; Z79.899 Other long term (current) drug therapy
CPT/HCPCS: 99283

== ENCOUNTER 2020-06-11 07:42 | Emergency (ER) | payer MEDICARE, MEDICAID ==
[~2020-06-11] VITALS: Ht 177.8 cm; Wt 140.9 kg
[2020-06-11] MEDS ORDERED: CLIN-97 PO (09:41)
== END 2020-06-11 10:06 | disposition home or self-care (01) ==
LOC: ER 07:42
DX: L02.414 Cutaneous abscess of left upper limb (principal); R09.81 Nasal congestion; R06.02 Shortness of breath; R43.8 Other disturbances of smell and taste; E11.9 Type 2 diabetes mellitus without complications; G89.29 Other chronic pain; F41.9 Anxiety disorder, unspecified; F32.9 Major depressive disorder, single episode, unspecified; F20.9 Schizophrenia, unspecified; F11.90 Opioid use, unspecified, uncomplicated; F17.210 Nicotine dependence, cigarettes, uncomplicated; Z98.890 Other specified postprocedural states; Z56.0 Unemployment, unspecified; Z59.0 Homelessness; Z88.1 Allergy status to other antibiotic agents; Z79.2 Long term (current) use of antibiotics; Z79.4 Long term (current) use of insulin; Z79.899 Other long term (current) drug therapy
CPT/HCPCS: 99283

== ENCOUNTER 2021-02-26 18:53 | Emergency (ER) | payer MEDICARE, MEDICAID ==
[~2021-02-26] VITALS: Ht 177.8 cm; Wt 118.2 kg
[~2021-02-26 18:53] MED LIST changes: -OLAN5TAB26 PO; +OLAN5TAB75 PO
[2021-02-26] MEDS ORDERED: CLIN-97 PO (21:56)
[2021-02-26] MEDS ORDERED: clindamycin 150mg capsule PO ONE (22:00)
[2021-02-26 22:23] VITALS: BP 101/57
== END 2021-02-26 22:20 | disposition home or self-care (01) ==
LOC: ER 18:53
DX: L03.114 Cellulitis of left upper limb (principal); E11.9 Type 2 diabetes mellitus without complications; G89.29 Other chronic pain; F41.9 Anxiety disorder, unspecified; F32.9 Major depressive disorder, single episode, unspecified; F20.9 Schizophrenia, unspecified; F11.90 Opioid use, unspecified, uncomplicated; Z98.890 Other specified postprocedural states; Z56.0 Unemployment, unspecified; Z59.00 Homelessness unspecified; Z88.1 Allergy status to other antibiotic agents; Z79.2 Long term (current) use of antibiotics; Z79.4 Long term (current) use of insulin; Z79.899 Other long term (current) drug therapy
CPT/HCPCS: 99283

== ENCOUNTER 2021-05-24 10:50 | Emergency (ER) | payer MEDICARE, MEDICAID ==
[~2021-05-24] VITALS: Ht 170.2 cm; Wt 118.2 kg
[2021-05-24 11:02] VITALS: BP 104/40
[2021-05-24] MEDS ORDERED: LURA80TA3 PO (18:24)
== END 2021-05-24 16:03 | disposition home or self-care (01) ==
LOC: ER 10:51
DX: M54.9 Dorsalgia, unspecified (principal); Z53.21 Procedure and treatment not carried out due to patient leaving prior to being seen by health care provider

== ENCOUNTER 2021-05-24 16:42 | Emergency (ER) | payer MEDICARE, MEDICAID ==
[~2021-05-24] VITALS: Ht 177.8 cm; Wt 114.0 kg
[2021-05-24 16:45] VITALS: BP 136/80
[2021-05-24] MEDS ORDERED: LURA80TA3 PO (18:24)
--- NOTE | 2021-05-24 18:30 | NUR ---
Pt given and understands d/c instructions. Ambulatory with a steady gait. Given a sandwich.
== END 2021-05-24 18:30 | disposition home or self-care (01) ==
LOC: ER 16:44
DX: F22 Delusional disorders (principal); F20.9 Schizophrenia, unspecified; G47.30 Sleep apnea, unspecified; E11.9 Type 2 diabetes mellitus without complications; F11.90 Opioid use, unspecified, uncomplicated; G89.29 Other chronic pain; Z76.0 Encounter for issue of repeat prescription; Z86.19 Personal history of other infectious and parasitic diseases; Z56.0 Unemployment, unspecified; Z59.00 Homelessness unspecified; Z88.1 Allergy status to other antibiotic agents; Z79.2 Long term (current) use of antibiotics; Z79.899 Other long term (current) drug therapy
CPT/HCPCS: 99281; 99283

== ENCOUNTER 2021-05-25 13:12 | Emergency (ER) | payer MEDICARE, MEDICAID ==
[~2021-05-25] VITALS: Ht 180.3 cm; Wt 90.0 kg
[2021-05-25] MEDS: ketorolac trometh inj. 60 MG/2 ML VIAL IM ONE (19:04)
[2021-05-25 19:05] VITALS: BP 140/74
[2021-05-26] MEDS ORDERED: IBUP-1984 PO (06:37)
[2021-05-26] MEDS ORDERED: ACET-1025 PO (06:37)
== END 2021-05-25 19:07 | disposition home or self-care (01) ==
LOC: ER 13:13
DX: S39.012A Strain of muscle, fascia and tendon of lower back, initial encounter (principal); M54.2 Cervicalgia; G47.30 Sleep apnea, unspecified; E11.9 Type 2 diabetes mellitus without complications; G89.29 Other chronic pain; F11.90 Opioid use, unspecified, uncomplicated; Z86.19 Personal history of other infectious and parasitic diseases; Z56.0 Unemployment, unspecified; Z59.00 Homelessness unspecified; Z88.1 Allergy status to other antibiotic agents; Z79.2 Long term (current) use of antibiotics; Z79.899 Other long term (current) drug therapy; Z79.4 Long term (current) use of insulin; W19.XXXA Unspecified fall, initial encounter; Y93.89 Activity, other specified; Y92.89 Other specified places as the place of occurrence of the external cause; Y99.8 Other external cause status
CPT/HCPCS: 96372; 99283; J1885

== ENCOUNTER 2021-05-25 23:28 | Emergency (ER) | payer MEDICARE, MEDICAID ==
[~2021-05-25] VITALS: Ht 177.8 cm; Wt 113.6 kg
[2021-05-25 23:52] VITALS: BP 130/80
[2021-05-25] MEDS ORDERED: quetiapine 100mg tablet PO STA (23:52)
[2021-05-26] MEDS: naproxen 500mg tablet PO ONE (00:12)
[2021-05-26] MEDS: QUEtiapine 25mg tablet PO STA (00:12)
[2021-05-26] MEDS ORDERED: ACET-1025 PO (06:37)
[2021-05-26] MEDS ORDERED: IBUP-1984 PO (06:37)
== END 2021-05-26 00:06 | disposition home or self-care (01) ==
LOC: ER 23:28
DX: M79.10 Myalgia, unspecified site (principal); R25.3 Fasciculation; G47.30 Sleep apnea, unspecified; E11.9 Type 2 diabetes mellitus without complications; G89.29 Other chronic pain; Z86.19 Personal history of other infectious and parasitic diseases; Z56.0 Unemployment, unspecified; Z59.00 Homelessness unspecified; Z88.1 Allergy status to other antibiotic agents; Z79.2 Long term (current) use of antibiotics; Z79.899 Other long term (current) drug therapy; W19.XXXA Unspecified fall, initial encounter; Y93.89 Activity, other specified; Y92.89 Other specified places as the place of occurrence of the external cause; Y99.8 Other external cause status
CPT/HCPCS: 99283

== ENCOUNTER 2021-05-30 03:46 | Emergency (ER) | payer MEDICARE, MEDICAID ==
[~2021-05-30] VITALS: Ht 177.8 cm; Wt 109.1 kg
[~2021-05-30 03:46] MED LIST changes: +IBUP-1984 PO
[2021-05-30 03:50] VITALS: BP 94/51
== END 2021-05-30 05:09 ==
LOC: ER 03:47
DX: S80.01XA Contusion of right knee, initial encounter (principal); Z88.1 Allergy status to other antibiotic agents; Z79.2 Long term (current) use of antibiotics; Z79.4 Long term (current) use of insulin; Z79.899 Other long term (current) drug therapy; X58.XXXA Exposure to other specified factors, initial encounter; Y93.89 Activity, other specified; Y92.89 Other specified places as the place of occurrence of the external cause; Y99.8 Other external cause status
CPT/HCPCS: 73564; 99283

== ENCOUNTER 2021-06-04 15:20 | Emergency (ER) | payer MEDICARE, MEDICAID ==
[~2021-06-04] VITALS: Ht 177.8 cm; Wt 100.0 kg
[2021-06-04 15:43] VITALS: BP 108/66
== END 2021-06-04 21:29 | disposition left against medical advice (07) ==
LOC: ER 15:20
DX: S80.11XA Contusion of right lower leg, initial encounter (principal); J45.909 Unspecified asthma, uncomplicated; G47.30 Sleep apnea, unspecified; E11.9 Type 2 diabetes mellitus without complications; G89.29 Other chronic pain; Z86.19 Personal history of other infectious and parasitic diseases; Z56.0 Unemployment, unspecified; Z59.00 Homelessness unspecified; F11.90 Opioid use, unspecified, uncomplicated; Z88.1 Allergy status to other antibiotic agents; Z79.899 Other long term (current) drug therapy; X58.XXXA Exposure to other specified factors, initial encounter; Y93.89 Activity, other specified; Y92.89 Other specified places as the place of occurrence of the external cause; Y99.8 Other external cause status
CPT/HCPCS: 73590; 99281; 99283

== ENCOUNTER 2021-06-05 23:08 | Emergency (ER) | payer MEDICARE, MEDICAID ==
[~2021-06-05] VITALS: Ht 179.1 cm; Wt 103.2 kg
[2021-06-05 23:12] VITALS: BP 190/118
[2021-06-06] MEDS ORDERED: IBUP-1984 PO (01:06)
[2021-06-06] MEDS ORDERED: ACET-3414 PO (01:06)
== END 2021-06-06 01:12 | disposition home or self-care (01) ==
LOC: ER 23:08
DX: S80.02XA Contusion of left knee, initial encounter (principal); J45.909 Unspecified asthma, uncomplicated; G47.30 Sleep apnea, unspecified; E11.9 Type 2 diabetes mellitus without complications; G89.29 Other chronic pain; Z86.19 Personal history of other infectious and parasitic diseases; F11.90 Opioid use, unspecified, uncomplicated; Z56.0 Unemployment, unspecified; Z59.00 Homelessness unspecified; Z88.1 Allergy status to other antibiotic agents; Z79.2 Long term (current) use of antibiotics; Z79.899 Other long term (current) drug therapy; X58.XXXA Exposure to other specified factors, initial encounter; Y93.89 Activity, other specified; Y92.89 Other specified places as the place of occurrence of the external cause; Y99.8 Other external cause status
CPT/HCPCS: 82948; 99282; 99283

== ENCOUNTER 2021-06-08 01:55 | Emergency (ER) | payer MEDICARE, MEDICAID ==
[~2021-06-08] VITALS: Ht 154.9 cm; Wt 92.7 kg
[~2021-06-08 01:55] MED LIST changes: +ACET-3414 PO
[2021-06-08 02:06] VITALS: BP 119/76
[2021-06-08] MEDS ORDERED: ketorolac tromethamine 15mg/ml inj. IM ONE (03:55)
[2021-06-08] MEDS ORDERED: IBUP-1984 PO (04:00)
== END 2021-06-08 04:15 | disposition home or self-care (01) ==
LOC: ER 01:55
DX: M25.561 Pain in right knee (principal); M25.562 Pain in left knee; M17.12 Unilateral primary osteoarthritis, left knee; M25.462 Effusion, left knee; J45.909 Unspecified asthma, uncomplicated; G47.30 Sleep apnea, unspecified; E11.9 Type 2 diabetes mellitus without complications; G89.29 Other chronic pain; F11.90 Opioid use, unspecified, uncomplicated; Z86.19 Personal history of other infectious and parasitic diseases; Z56.0 Unemployment, unspecified; Z59.00 Homelessness unspecified; Z88.1 Allergy status to other antibiotic agents; Z79.2 Long term (current) use of antibiotics; Z79.899 Other long term (current) drug therapy; Z79.4 Long term (current) use of insulin
CPT/HCPCS: 73564; 99283; J1885

== ENCOUNTER 2021-06-11 21:57 | Emergency (ER) | payer MEDICARE, MEDICAID ==
[~2021-06-11] VITALS: Ht 177.8 cm; Wt 99.2 kg
[~2021-06-11 21:57] MED LIST changes: +LURA40TA2 PO; -LURA40TA3 PO; +LURA80TA2 PO; -LURA80TA3 PO
[2021-06-11 23:06] VITALS: BP 121/86
--- NOTE | 2021-06-12 02:10 | NUR ---
PATIENT LEFT LOBBY PRIOR TO BEING EVALUATED.
== END 2021-06-12 02:15 | disposition left against medical advice (07) ==
LOC: ER 21:59
DX: Z00.8 Encounter for other general examination (principal); Z53.21 Procedure and treatment not carried out due to patient leaving prior to being seen by health care provider

== ENCOUNTER 2021-06-12 03:02 | Emergency (ER) | payer MEDICARE, MEDICAID | END 2021-06-12 05:14 | disposition left against medical advice (07) | LOC: ER 03:03 | DX: Z76.0 Encounter for issue of repeat prescription (principal); Z53.21 Procedure and treatment not carried out due to patient leaving prior to being seen by health care provider ==

== ENCOUNTER 2021-06-12 22:39 | Emergency (ER) | payer MEDICARE, MEDICAID ==
[~2021-06-12] VITALS: Ht 157.5 cm; Wt 71.9 kg
[2021-06-12 23:11] VITALS: BP 125/76
[2021-06-14] MEDS ORDERED: LURA80TA2 PO ×2 (09:30→09:33)
== END 2021-06-13 05:12 | disposition left against medical advice (07) ==
LOC: ER 22:40
DX: M25.562 Pain in left knee (principal); M25.561 Pain in right knee; Z53.21 Procedure and treatment not carried out due to patient leaving prior to being seen by health care provider

== ENCOUNTER 2021-06-14 08:11 | Emergency (ER) | payer MEDICARE, MEDICAID ==
[~2021-06-14] VITALS: Ht 177.8 cm; Wt 97.2 kg
[2021-06-14 08:18] VITALS: BP 138/88
[2021-06-14] MEDS ORDERED: LURA80TA2 PO ×2 (09:30→09:33)
== END 2021-06-14 09:36 | disposition home or self-care (01) ==
LOC: ER 08:12
DX: F20.0 Paranoid schizophrenia (principal); J45.909 Unspecified asthma, uncomplicated; G47.30 Sleep apnea, unspecified; E11.9 Type 2 diabetes mellitus without complications; G89.29 Other chronic pain; F41.9 Anxiety disorder, unspecified; F32.9 Major depressive disorder, single episode, unspecified; Z56.0 Unemployment, unspecified; Z59.00 Homelessness unspecified; Z88.1 Allergy status to other antibiotic agents; Z79.2 Long term (current) use of antibiotics; Z79.899 Other long term (current) drug therapy; Z79.4 Long term (current) use of insulin
CPT/HCPCS: 99281; 99283

== ENCOUNTER 2021-06-24 05:22 | Emergency (ER) | payer MEDICARE, MEDICAID ==
[~2021-06-24] VITALS: Ht 177.8 cm; Wt 113.6 kg
[2021-06-24 06:10] VITALS: BP 119/64
[2021-06-24] MEDS ORDERED: acetaminophen 325mg tablet PO ONE (06:50)
[2021-06-24] MEDS ORDERED: ketorolac trometh inj. 60 MG/2 ML VIAL IM ONE (06:50)
== END 2021-06-24 07:40 | disposition home or self-care (01) ==
LOC: ER 05:22
DX: M54.89 Other dorsalgia (principal); J45.909 Unspecified asthma, uncomplicated; E11.9 Type 2 diabetes mellitus without complications; G89.29 Other chronic pain; F41.9 Anxiety disorder, unspecified; F32.A Depression, unspecified; F20.9 Schizophrenia, unspecified; Z98.890 Other specified postprocedural states; Z56.0 Unemployment, unspecified; Z59.00 Homelessness unspecified; Z88.1 Allergy status to other antibiotic agents; Z79.899 Other long term (current) drug therapy; Z79.4 Long term (current) use of insulin
CPT/HCPCS: 93005; 96372; 99283; J1885

== ENCOUNTER 2021-06-26 04:13 | Emergency (ER) | payer MEDICARE, MEDICAID ==
[~2021-06-26] VITALS: Ht 177.8 cm; Wt 109.1 kg
[2021-06-26 04:25] VITALS: BP 145/87
[2021-06-26] MEDS ORDERED: gabapentin 300mg capsule PO ONE (05:15)
== END 2021-06-26 05:36 | disposition home or self-care (01) ==
LOC: ER 04:14
DX: M54.50 Low back pain, unspecified (principal); G89.29 Other chronic pain; J45.909 Unspecified asthma, uncomplicated; E11.9 Type 2 diabetes mellitus without complications; F41.9 Anxiety disorder, unspecified; F32.A Depression, unspecified; F20.9 Schizophrenia, unspecified; Z59.00 Homelessness unspecified; Z56.0 Unemployment, unspecified; Z88.1 Allergy status to other antibiotic agents; Z79.2 Long term (current) use of antibiotics; Z79.4 Long term (current) use of insulin; Z79.899 Other long term (current) drug therapy
CPT/HCPCS: 99283

== ENCOUNTER 2021-06-27 04:07 | Emergency (ER) | payer MEDICARE, MEDICAID ==
[~2021-06-27] VITALS: Ht 177.8 cm; Wt 99.2 kg
[2021-06-27 04:11] VITALS: BP 134/85
[2021-06-27] MEDS ORDERED: gabapentin 300mg capsule PO ONE (04:40)
== END 2021-06-27 05:46 | disposition home or self-care (01) ==
LOC: ER 04:08
DX: R05.9 Cough, unspecified (principal); J45.909 Unspecified asthma, uncomplicated; E11.9 Type 2 diabetes mellitus without complications; G89.29 Other chronic pain; F41.9 Anxiety disorder, unspecified; F32.A Depression, unspecified; F20.9 Schizophrenia, unspecified; Z59.00 Homelessness unspecified; Z56.0 Unemployment, unspecified; Z88.1 Allergy status to other antibiotic agents; Z79.4 Long term (current) use of insulin; Z79.2 Long term (current) use of antibiotics; Z79.899 Other long term (current) drug therapy
CPT/HCPCS: 71045; 99283

== ENCOUNTER 2021-06-30 10:56 | Emergency (ER) | payer MEDICARE, MEDICAID ==
[~2021-06-30] VITALS: Ht 170.2 cm; Wt 77.3 kg
[2021-06-30] MEDS ORDERED: acetaminophen 325mg tablet PO ONE (13:40)
[2021-06-30] MEDS ORDERED: metoclopramide 10mg tablet PO ONE (13:40)
[2021-06-30] MEDS ORDERED: ketorolac trometh. 30mg/ml inj. IM ONE (13:45)
[2021-06-30 15:16] VITALS: BP 127/83
== END 2021-06-30 15:17 | disposition home or self-care (01) ==
LOC: ER 10:57
DX: R51.9 Headache, unspecified (principal); J45.909 Unspecified asthma, uncomplicated; G47.30 Sleep apnea, unspecified; E11.9 Type 2 diabetes mellitus without complications; F11.90 Opioid use, unspecified, uncomplicated; G89.29 Other chronic pain; Z86.19 Personal history of other infectious and parasitic diseases; Z56.0 Unemployment, unspecified; Z59.00 Homelessness unspecified; Z88.1 Allergy status to other antibiotic agents; Z79.2 Long term (current) use of antibiotics; Z79.899 Other long term (current) drug therapy; Z79.4 Long term (current) use of insulin
CPT/HCPCS: 70450; 96372; 99284; J1885

== ENCOUNTER 2021-07-03 19:52 | Emergency (ER) | payer MEDICARE, MEDICAID ==
[~2021-07-03] VITALS: Ht 177.8 cm; Wt 99.8 kg
[2021-07-03 20:16] VITALS: BP 120/72
[2021-07-04] MEDS ORDERED: IBUP-1984 PO (07:38)
== END 2021-07-04 02:53 | disposition left against medical advice (07) ==
LOC: ER 19:54
DX: F41.9 Anxiety disorder, unspecified (principal); Z53.21 Procedure and treatment not carried out due to patient leaving prior to being seen by health care provider

== ENCOUNTER 2021-07-04 07:20 | Emergency (ER) | payer MEDICARE, MEDICAID ==
[~2021-07-04] VITALS: Ht 182.9 cm; Wt 99.7 kg
[2021-07-04 07:26] VITALS: BP 159/75
[2021-07-04] MEDS ORDERED: IBUP-1984 PO (07:38)
== END 2021-07-04 08:06 | disposition home or self-care (01) ==
LOC: ER 07:20
DX: S00.33XA Contusion of nose, initial encounter (principal); J45.909 Unspecified asthma, uncomplicated; E11.9 Type 2 diabetes mellitus without complications; F32.9 Major depressive disorder, single episode, unspecified; F20.9 Schizophrenia, unspecified; Z59.00 Homelessness unspecified; Z56.0 Unemployment, unspecified; Z88.1 Allergy status to other antibiotic agents; Z79.899 Other long term (current) drug therapy; Y04.8XXA Assault by other bodily force, initial encounter; Y93.89 Activity, other specified; Y92.89 Other specified places as the place of occurrence of the external cause; Y99.8 Other external cause status
CPT/HCPCS: 99282

== ENCOUNTER 2021-07-04 20:59 | Emergency (ER) | payer MEDICARE, MEDICAID ==
[~2021-07-04] VITALS: Ht 180.3 cm; Wt 100.2 kg
[2021-07-04 22:15] VITALS: BP 125/77
== END 2021-07-05 03:11 | disposition home or self-care (01) ==
LOC: ER 20:59
DX: Z13.89 Encounter for screening for other disorder (principal); F41.9 Anxiety disorder, unspecified; J45.909 Unspecified asthma, uncomplicated; E11.9 Type 2 diabetes mellitus without complications; G89.29 Other chronic pain; F32.A Depression, unspecified; F20.9 Schizophrenia, unspecified; F17.200 Nicotine dependence, unspecified, uncomplicated; Z98.890 Other specified postprocedural states; Z59.00 Homelessness unspecified; Z56.0 Unemployment, unspecified; Z88.1 Allergy status to other antibiotic agents; Z79.2 Long term (current) use of antibiotics; Z79.899 Other long term (current) drug therapy
CPT/HCPCS: 99281

== ENCOUNTER 2021-07-05 18:47 | Emergency (ER) | payer MEDICARE, MEDICAID ==
[~2021-07-05] VITALS: Ht 175.3 cm; Wt 100.1 kg
[2021-07-05 18:55] VITALS: BP 10/70
== END 2021-07-05 19:37 | disposition home or self-care (01) ==
LOC: ER 18:48
DX: Z02.89 Encounter for other administrative examinations (principal); J45.909 Unspecified asthma, uncomplicated; E11.9 Type 2 diabetes mellitus without complications; G89.29 Other chronic pain; F41.9 Anxiety disorder, unspecified; F32.A Depression, unspecified; F20.9 Schizophrenia, unspecified; F11.90 Opioid use, unspecified, uncomplicated; Z98.890 Other specified postprocedural states; Z56.0 Unemployment, unspecified; Z59.00 Homelessness unspecified; Z88.1 Allergy status to other antibiotic agents; Z79.2 Long term (current) use of antibiotics; Z79.899 Other long term (current) drug therapy; Z79.4 Long term (current) use of insulin
CPT/HCPCS: 99281

== ENCOUNTER 2021-07-11 20:52 | Emergency (ER) | payer MEDICARE, MEDICAID ==
[~2021-07-11] VITALS: Ht 177.8 cm; Wt 104.5 kg
[~2021-07-11 20:52] MED LIST changes: -IBUP-1984 PO
[2021-07-11 21:04] VITALS: BP 117/72
[2021-07-11] MEDS ORDERED: OLANZapine 2.5MG tablet PO STA (22:26)
[2021-07-11] MEDS ORDERED: olanzapine 10mg tablet PO STA ×2 (22:30→22:41)
== END 2021-07-11 22:56 | disposition home or self-care (01) ==
LOC: ER 20:52
DX: F41.9 Anxiety disorder, unspecified (principal); G89.29 Other chronic pain; J45.909 Unspecified asthma, uncomplicated; G47.30 Sleep apnea, unspecified; E11.9 Type 2 diabetes mellitus without complications; F11.90 Opioid use, unspecified, uncomplicated; F32.A Depression, unspecified; Z86.19 Personal history of other infectious and parasitic diseases; Z56.0 Unemployment, unspecified; Z59.00 Homelessness unspecified; Z88.1 Allergy status to other antibiotic agents; Z79.2 Long term (current) use of antibiotics; Z79.899 Other long term (current) drug therapy
CPT/HCPCS: 99283

== ENCOUNTER 2021-07-15 15:40 | Emergency (ER) | payer MEDICARE, MEDICAID ==
[~2021-07-15] VITALS: Ht 177.8 cm; Wt 107.0 kg
[2021-07-15 15:59] VITALS: BP 125/63
[2021-07-15] MEDS ORDERED: ibuprofen tablet 400 MG TABLET PO ONE (16:15)
--- NOTE | 2021-07-15 16:45 | NUR ---
Pt was given a sandwich and a juice.
--- NOTE | 2021-07-15 17:15 | NUR ---
Pt left without being discharged.
== END 2021-07-15 17:15 | disposition home or self-care (01) ==
LOC: ER 15:41
DX: R09.89 Other specified symptoms and signs involving the circulatory and respiratory systems (principal); Z20.822 Contact with and (suspected) exposure to COVID-19; J30.9 Allergic rhinitis, unspecified; R51.9 Headache, unspecified; R05.9 Cough, unspecified; E11.9 Type 2 diabetes mellitus without complications; G89.29 Other chronic pain; F41.9 Anxiety disorder, unspecified; F32.A Depression, unspecified; F20.9 Schizophrenia, unspecified; F17.200 Nicotine dependence, unspecified, uncomplicated; F11.90 Opioid use, unspecified, uncomplicated; Z98.890 Other specified postprocedural states; Z56.0 Unemployment, unspecified; Z59.00 Homelessness unspecified; Z88.1 Allergy status to other antibiotic agents; Z79.4 Long term (current) use of insulin; Z79.2 Long term (current) use of antibiotics; Z79.899 Other long term (current) drug therapy
CPT/HCPCS: 87635; 99283; C9803

== ENCOUNTER 2021-07-17 20:00 | Emergency (ER) | payer MEDICARE, MEDICAID ==
[~2021-07-17] VITALS: Ht 177.8 cm; Wt 100.0 kg
[2021-07-17 20:09] VITALS: BP 123/70
[2021-07-17 20:39] LABS: BASOPHILS # (AUTO) 0.1 X10'3 (0-0.2); BASOPHILS % (AUTO) 0.5 % (0-1); EOSINOPHILS # (AUTO) 0.1 X10'3 (0-0.9); EOSINOPHILS % (AUTO) 1.1 % (0-6); HEMATOCRIT 40.9 % (42.0-52.0); HEMOGLOBIN 13.9 g/dl (14.0-17.9); LYMPHOCYTES # (AUTO) 1.9 X10'3 (1.1-4.8); LYMPHOCYTES % (AUTO) 17.7 % (21-51); MEAN CORPUSCULAR HEMOGLOBIN 31.3 PG (27.0-31.0); MEAN CORPUSCULAR HGB CONC 33.9 g/dL (33.0-36.5); MEAN CORPUSCULAR VOLUME 92.2 FL (78-98); MEAN PLATELET VOLUME 8.4 FL (7.4-10.4); MONOCYTES # (AUTO) 0.6 X10'3 (0-0.9); MONOCYTES % (AUTO) 5.8 % (2-12); NEUTROPHILS # (AUTO) 8.2 X10'3 (1.8-7.7); NEUTROPHILS % (AUTO) 74.9 % (42-75); PLATELET COUNT 342 X10'3 (140-440); RED BLOOD COUNT 4.44 X10'6 (4.70-6.10); RED CELL DISTRIBUTION WIDTH 14.2 % (11.5-14.5)
[2021-07-17 20:55] LABS: ALANINE AMINOTRANSFERASE 44 U/L (12-78); ALBUMIN 3.9 G/DL (3.4-5.0); ALBUMIN/GLOBULIN RATIO 1.1 (1.1-1.5); ALKALINE PHOSPHATASE 70 IU/L (46-116); ANION GAP 6 (8-16); ASPARTATE AMINO TRANSFERASE 35 U/L (10-37); BILIRUBIN,TOTAL 0.4 MG/DL (0.1-1.0); BLOOD UREA NITROGEN 15 MG/DL (7-18); BUN/CREATININE RATIO 16.3 (5.4-32.0); CALCIUM 9.2 MG/DL (8.5-10.1); CHLORIDE 102 MMOL/L (99-107); CREATININE 0.92 MG/DL (0.60-1.10); GLUCOSE 114 MG/DL (70-104); LIPASE < 50 U/L (73-393); POTASSIUM 3.5 MMOL/L (3.5-5.1); SODIUM 137 MMOL/L (135-145); TOTAL CARBON DIOXIDE 29.4 MMOL/L (24-32); TOTAL PROTEIN 7.5 G/DL (6.4-8.2); eGFR > 90 ML/MIN
[2021-07-17 21:34] LABS: CLARITY,URINE CLEAR (Clear); COLOR,URINE YELLOW (Yellow); GLUCOSE, URINE NEGATIVE (Neg); KETONES,URINE NEGATIVE (Neg); LEUKOCYTE ESTERASE ,URINE NEGATIVE (Neg); NITRITES, URINE NEGATIVE (Neg); OCCULT BLOOD,URINE NEGATIVE (Neg); PH,URINE 5.5 (4.8-8.0); PROTEIN,URINE NEGATIVE (Neg); UROBILINOGEN,URINE 0.2 E.U/dL (0.2-1.0)
[2021-07-17 21:42] LABS: UA COLLECTION TYPE CLN CATCH MIDSTREAM
[2021-07-17] MEDS ORDERED: DOCU100C40 PO ×2 (22:20→22:31)
[2021-07-17] MEDS ORDERED: ondansetron 4mg rapidly disintigrating tab PO ONE (22:20)
[2021-07-17] MEDS ORDERED: POLY17PO10 PO ×2 (22:20→22:31)
== END 2021-07-17 22:34 | disposition home or self-care (01) ==
LOC: ER 20:04
DX: K59.00 Constipation, unspecified (principal); J45.909 Unspecified asthma, uncomplicated; G47.30 Sleep apnea, unspecified; E11.9 Type 2 diabetes mellitus without complications; G89.29 Other chronic pain; F11.90 Opioid use, unspecified, uncomplicated; Z86.19 Personal history of other infectious and parasitic diseases; Z56.0 Unemployment, unspecified; Z59.00 Homelessness unspecified; Z88.1 Allergy status to other antibiotic agents; Z79.2 Long term (current) use of antibiotics; Z79.899 Other long term (current) drug therapy; Z79.4 Long term (current) use of insulin
CPT/HCPCS: 36415; 74018; 80053; 81003; 83690; 85025; 99284

== ENCOUNTER 2021-07-30 15:43 | Emergency (ER) | payer MEDICARE, MEDICAID ==
[~2021-07-30] VITALS: Ht 177.8 cm; Wt 104.5 kg
[~2021-07-30 15:43] MED LIST changes: +DOCU100C40 PO
[2021-07-30 15:51] VITALS: BP 150/88
[2021-07-30] MEDS ORDERED: HYDR28CR14 TOP ×2 (15:54→16:01)
== END 2021-07-30 16:08 | disposition home or self-care (01) ==
LOC: ER 15:45
DX: S30.810A Abrasion of lower back and pelvis, initial encounter (principal); L02.33 Carbuncle of buttock; L29.8 Other pruritus; J45.909 Unspecified asthma, uncomplicated; E11.9 Type 2 diabetes mellitus without complications; G89.29 Other chronic pain; F41.9 Anxiety disorder, unspecified; F32.A Depression, unspecified; F20.9 Schizophrenia, unspecified; F11.90 Opioid use, unspecified, uncomplicated; Z98.890 Other specified postprocedural states; Z56.0 Unemployment, unspecified; Z59.00 Homelessness unspecified; Z88.1 Allergy status to other antibiotic agents; Z79.2 Long term (current) use of antibiotics; Z79.4 Long term (current) use of insulin; Z79.899 Other long term (current) drug therapy; X58.XXXA Exposure to other specified factors, initial encounter; Y93.89 Activity, other specified; Y92.89 Other specified places as the place of occurrence of the external cause; Y99.8 Other external cause status
CPT/HCPCS: 99282; 99283

== ENCOUNTER 2021-08-05 16:34 | Emergency (ER) | payer MEDICARE, MEDICAID ==
[~2021-08-05] VITALS: Ht 177.8 cm; Wt 99.5 kg
[~2021-08-05 16:34] MED LIST changes: +HYDR28CR14 TOP
[2021-08-05 16:57] VITALS: BP 116/53
[2021-08-05] MEDS ORDERED: MUPI22OI30 TOP (18:10)
== END 2021-08-05 18:24 | disposition home or self-care (01) ==
LOC: ER 16:35
DX: Z48.00 Encounter for change or removal of nonsurgical wound dressing (principal); L02.32 Furuncle of buttock; J45.909 Unspecified asthma, uncomplicated; E11.9 Type 2 diabetes mellitus without complications; G89.29 Other chronic pain; F41.9 Anxiety disorder, unspecified; F32.A Depression, unspecified; F20.9 Schizophrenia, unspecified; F11.90 Opioid use, unspecified, uncomplicated; Z98.890 Other specified postprocedural states; Z59.00 Homelessness unspecified; Z56.0 Unemployment, unspecified; Z88.1 Allergy status to other antibiotic agents; Z79.2 Long term (current) use of antibiotics; Z79.4 Long term (current) use of insulin; Z79.899 Other long term (current) drug therapy
CPT/HCPCS: 99283

== ENCOUNTER 2021-08-12 00:16 | Inpatient (IN) | payer MEDICARE, MEDICAID ==
[~2021-08-12] VITALS: Ht 177.8 cm; Wt 100.0 kg
[2021-08-12] VITALS (8 sets, daily range): BP systolic 118–144; BP diastolic 69–74
[~2021-08-12 00:16] MED LIST changes: +MUPI22OI30 TOP
[2021-08-12] MEDS ORDERED: vancomycin/NS 1 GM ADD-VANTAGE 250 ML IV ONE (03:45)
[2021-08-12] MEDS ORDERED: ketorolac tromethamine 15mg/ml inj. IV ONE (03:45)
[2021-08-12 04:11] LABS: BASOPHILS # (AUTO) 0.1 X10'3 (0-0.2); BASOPHILS % (AUTO) 0.9 % (0-1); EOSINOPHILS # (AUTO) 0.2 X10'3 (0-0.9); EOSINOPHILS % (AUTO) 1.8 % (0-6); HEMATOCRIT 38.1 % (42.0-52.0); HEMOGLOBIN 12.7 g/dl (14.0-17.9); LYMPHOCYTES # (AUTO) 1.9 X10'3 (1.1-4.8); LYMPHOCYTES % (AUTO) 13.9 % (21-51); MEAN CORPUSCULAR HEMOGLOBIN 29.9 PG (27.0-31.0); MEAN CORPUSCULAR HGB CONC 33.2 g/dL (33.0-36.5); MEAN CORPUSCULAR VOLUME 89.9 FL (78-98); MEAN PLATELET VOLUME 7.4 FL (7.4-10.4); MONOCYTES % (AUTO) 7.4 % (2-12); NEUTROPHILS # (AUTO) 10.6 X10'3 (1.8-7.7); PLATELET COUNT 497 X10'3 (140-440); RED BLOOD COUNT 4.24 X10'6 (4.70-6.10); RED CELL DISTRIBUTION WIDTH 13.3 % (11.5-14.5)
[2021-08-12] MEDS ORDERED: iohexol 300mg/ml 100ml inj. ONE ×2 (04:18→05:35)
--- NOTE | 2021-08-12 04:30 | NUR ---
DR MCCALLUM MADE AWARE THAT PT IS A VERY DIFFICULT STICK. HE REQUESTS TO TRY EJ IV PLACEMENT. MOBILE APPLICATION ENGINEER, SOL, WILL ATTEMPT TO PLACE ONE.
[2021-08-12 04:32] LABS: ALANINE AMINOTRANSFERASE 38 U/L (12-78); ALBUMIN 2.6 G/DL (3.4-5.0); ALBUMIN/GLOBULIN RATIO 0.7 (1.1-1.5); ALKALINE PHOSPHATASE 71 IU/L (46-116); ANION GAP 7 (8-16); ASPARTATE AMINO TRANSFERASE 23 U/L (10-37); BILIRUBIN,TOTAL 0.4 MG/DL (0.1-1.0); BLOOD UREA NITROGEN 6 MG/DL (7-18); BUN/CREATININE RATIO 11.5 (5.4-32.0); C-REACTIVE PROTEIN 8.69 MG/DL (0.0-0.5); CALCIUM 8.5 MG/DL (8.5-10.1); CHLORIDE 100 MMOL/L (99-107); CREATININE 0.52 MG/DL (0.60-1.10); GLUCOSE 108 MG/DL (70-104); MAGNESIUM 2.3 MG/DL (1.5-2.4); POTASSIUM 3.2 MMOL/L (3.5-5.1); SODIUM 136 MMOL/L (135-145); TOTAL CARBON DIOXIDE 28.6 MMOL/L (24-32); TOTAL PROTEIN 6.4 G/DL (6.4-8.2); eGFR > 90 ML/MIN
--- NOTE | 2021-08-12 04:33 | NUR ---
RIGHT EJ PLACED.
--- NOTE | 2021-08-12 05:09 | NUR ---
Pt had EJ in RT sided of neck. Per protocol I ask Dr De"s scribe to have the doctor sign off on the EJ so I could use it. Scribe went to Doctor Shar he said it was OK to use and he would officially sign off later. The EJ extravisated during injection approx. 50cc of contrast. was informed as was charge nurse and patient' nurse Dianne
--- NOTE | 2021-08-12 05:26 | NUR ---
CENTRAL LINE SETUP PREPPED FOR DR Dallas. DR MCCALLUM IS IN ROOM PLACING CENTRAL LINE.
[2021-08-12] MEDS ORDERED: piperacillin/tazo 3.375gm/50ml 50 ML IV ONE (05:45)
[2021-08-12] MEDS ORDERED: ondansetron/PF 4mg/2ml inj IV ONE (05:45)
[2021-08-12] MEDS ORDERED: morphine 4 MG/ML inj SYRINge IV ONE (05:45)
--- NOTE | 2021-08-12 05:45 | NUR ---
CENTRAL LINE PLACED. PT BACK IN CT NOW
[2021-08-12] MEDS ORDERED: sevoflurane 250ml liquid IH ONE (06:00)
--- NOTE | 2021-08-12 06:20 | NUR ---
Pt is awake and alert. IV antibiotics infusing.
[2021-08-12 06:53] LABS: URINE AMPHETAMINE SCREEN POSITIVE (Neg); URINE BARBITUATE SCREEN NEGATIVE (Neg); URINE BENZODIAZEPINES SCREEN NEGATIVE (Neg); URINE CANNABINOID SCREEN POSITIVE (Neg); URINE COCAINE SCREEN NEGATIVE (Neg); URINE METHADONE SCREEN NEGATIVE (Neg); URINE OPIATE SCREEN POSITIVE (Neg); URINE PHENCYCLIDINE SCREEN NEGATIVE (Neg)
--- NOTE | 2021-08-12 07:15 | NUR ---
Found pt standing at the side of the bed trying to put on his pants. I asked what he was doing and he said, "taking my catheter out." Pt's R groin central line was dangling from the sutures. I asked the pt to please return to bed. IV infusion stopped and Dr. Clement was notified.
--- NOTE | 2021-08-12 07:20 | NUR ---
Pt dressed himself and attempted to walk out of the department. Staff intercepted him at the back door. Pt stated, "I am not sure I want the surgery." I explained to him that he has a life threatening infection and the possible surgery will save his life. He agreed to stay.
--- NOTE | 2021-08-12 07:47 | NUR ---
PT MOVED TO ROOM 8 FOR CLOSER MONITORING
--- NOTE | 2021-08-12 08:10 | NUR ---
PT ELOPED TO GO OUTSIDE AND SMOKE A CIGARETTE SECURITY INFORMED
[2021-08-12] MEDS ORDERED: potassium Cl 20 mEq SR tablet PO PRN ×2 (08:20)
[2021-08-12] MEDS ORDERED: HYDROmorphone/PF 0.2 MG/ML SYRINGE IV PRN (08:20)
[2021-08-12] MEDS ORDERED: HYDROmorphone inj. 0.5 MG/0.5 ML DISP.SYRIN IV PRN (08:20)
[2021-08-12] MEDS ORDERED: acetaminophen 325mg tablet PO PRN ×2 (08:20)
[2021-08-12] MEDS ORDERED: bisacodyl 10mg suppository rectal RC PRN (08:20)
[2021-08-12] MEDS ORDERED: ondansetron/PF 4mg/2ml inj IV PRN ×2 (08:20→12:55)
[2021-08-12] MEDS ORDERED: mag hydrox/Alum hydrox/simeth 30ml oral suspension PO PRN (08:20)
[2021-08-12] MEDS ORDERED: LORazepam 2 mg/ml vial IV PRN (08:20)
[2021-08-12] MEDS ORDERED: HYDROcodone/acetaminophen 10/325mg tab PO PRN (08:20)
[2021-08-12] MEDS ORDERED: magnesium 4gm in 100ml NS 100 ML IV PRN (08:20)
[2021-08-12] MEDS ORDERED: metoclopramide 5 mg/ml inj IV PRN (08:20)
[2021-08-12] MEDS ORDERED: potassium CL 10mEq/100ml bag 100 ML IV PRN (08:20)
[2021-08-12] MEDS ORDERED: TETanus/Pertussis (Acell)/Diphther VAC/PF (Tdap-Adult) 0.5ml syringe IMVAC ONE (08:20)
[2021-08-12] MEDS ORDERED: magnesium 2GM in 50ml NS 50 ML IV PRN (08:20)
[2021-08-12] MEDS ORDERED: magnesium hydroxide 30ml (MOM) UD suspension PO PRN (08:20)
[2021-08-12] MEDS ORDERED: ondansetron 4mg rapidly disintigrating tab PO PRN (08:20)
[2021-08-12] MEDS ORDERED: magnesium Cl slow-release 64mg tablet PO PRN (08:20)
[2021-08-12] MEDS ORDERED: HYDROcodone/acetaminophen 5mg/325mg tablet PO PRN (08:20)
--- NOTE | 2021-08-12 08:20 | NUR ---
PT RETURNED TO ED NICOTINE PATCH PLACED
[2021-08-12] MEDS ORDERED: nicotine 14mg patch - 24hr TD SCH (08:35)
[2021-08-12] MEDS: normal saline 1000ml 1,000 ML IV SCH ×2 (08:44→14:47)
[2021-08-12 08:55] LABS: MAGNESIUM 2.5 MG/DL (1.5-2.4); POTASSIUM 3.4 MMOL/L (3.5-5.1)
[2021-08-12] MEDS ORDERED: vancomycin/NS 1 GM ADD-VANTAGE 250 ML IV SCH ×2 (12:00→15:00)
[2021-08-12] MEDS ORDERED: midazolam 1 mg/ML 2ml injection ONE (12:39)
[2021-08-12] MEDS ORDERED: FENTANYL CITRATE/PF 50 MCG/1 ML VIAL ONE ×2 (12:39→12:46)
[2021-08-12] MEDS ORDERED: morphine 2 MG/ML inj. syringe IV PRN (12:55)
[2021-08-12] MEDS ORDERED: morphine 4 MG/ML inj SYRINge IV PRN (12:55)
[2021-08-12] MEDS ORDERED: ringers solution, lacted 1,000 ML IV SCH (12:55)
[2021-08-12] MEDS ORDERED: proCHLORperazine 10 MG/2 ml inj IV PRN (12:55)
[2021-08-12] MEDS ORDERED: meperidine/PF 25mg/ml syringe IV PRN ×3 (12:55)
[2021-08-12] MEDS ORDERED: morphine 4 MG/ML inj SYRINge ONE (13:11)
[2021-08-12] MEDS ORDERED: dexamethasone sod phosphate 4mg/ml inj. ONE (13:12)
[2021-08-12] MEDS ORDERED: LIDOcaine 1%/PF 5ML 10 MG/ML VIAL ONE (13:12)
[2021-08-12] MEDS ORDERED: ketamine 50mg/5ml syringe ONE (13:12)
[2021-08-12] MEDS ORDERED: propofol inj 20 ML IV ONE (13:12)
[2021-08-12] MEDS ORDERED: ondansetron/PF 4mg/2ml inj ONE (13:12)
--- NOTE | 2021-08-12 13:27 | NUR ---
Received from OR via BED , accompanied by Anesthesiologist and report given by Anesthesiolgist.
[2021-08-12] MEDS ORDERED: acetaminophen 1,000mg/100ml IV 100 ML IV SCH (14:00)
--- NOTE | 2021-08-12 14:00 | NUR ---
PT VERY AGRESSIVE AND CURSING, COMPLAINING OF THE NEED TO DO LAPS AROUND THE HOSPITAL. PT EDUCATED THAT HE COULD NOT WALK AROUND BECAUSE OF THE PAIN MEDICATIONS AND ANETHESIA THAT HE RECEIVED. PT VERBALIZED UNDERSTANDING BUT CONTINUED TO YELL AND CURSE, SAYING THAT 13 BEES STUNG HIS ARM AND THAT THE JELLO SHOTS HE RECEIVED WERE BAD. MALE CHARGE NURSE SPOKE TO PATIENT AND HE SEEMED TO CALM DOWN.
--- NOTE | 2021-08-12 14:37 | NUR ---
PT WITH GOOD PAIN RELIEF NOW, RIGHT ARM ELEVATED ON 2 PILLOWS, REPORT CALLED TO MY RN, RIGHT ARM PINK AND WARM, PULSE OX ON RIGHT SIDE SATS HIGH 90'S, BRISK CAPILLARY REFILL. PT TRANSPORTED IN STABLE CONDITION, PT AMBULATED FROM STRETCHER TO BED WITHOUT DIFFICULTY, RN AT BEDSIDE.
--- NOTE | 2021-08-12 14:50 | NUR ---
Patient appears to be very anxious and unable to sit still. Patient fumbling with IV tubing, walking in circles and picking scabs on skin. Educated patient that he had surgery and will be on post op vitals and fall risks. Patient will states, "OK" but then continue to pace and fumble with tubing. Patient standing up and sitting down, pacing room, throwing arms up and down and shaking head." Patient attempting to unscrew IV. Again educated patient on fall risks, safety and post op vitals. Patient educated not to pull on surgical dressing. PCT at bedside. Will continue to monitor.
--- NOTE | 2021-08-12 15:30 | NUR ---
Patient refused to have physical assessment completed.
[2021-08-12] MEDS ORDERED: piperacillin/tazo 3.375gm/50ml 50 ML IV SCH (16:00)
--- NOTE | 2021-08-12 16:03 | NUR ---
PAGER ID: [phone] MESSAGE: [phone]- Ivan Fishman- pt had RUE I&D and wanting to leave AMA.. Dr. Brody also notified. - [facility] [place] [facility]
[2021-08-12] MEDS ORDERED: NO HOME MEDS (16:04)
--- NOTE | 2021-08-12 16:04 | NUR ---
Dr Brody notified that patient is wanting to leave AMA. Per Dr Brody advise patient he should come to the ER tomorrow to get his dressing changed. Primary RN aware.
--- NOTE | 2021-08-12 16:16 | NUR ---
Patient wanting to leave. Patient stated "I'll take it as a lost. I'm going." Educated patient risk of leaving AMA due to abscess, need for IV abx and s/p I&D. Patient shrugged and stated, "I'm leaving." Dr Garcia and Dr. Brody notified. Let patient know that Dr. Brody wanted patient to return tomorrow to ER and get dressing changed if he was leaving AMA. Patient verbalized understanding and left with all personal belongings. Patient was escorted out by security.
--- NOTE | 2021-08-12 17:11 | NUR ---
Unable to complete post op vitals due to patient repeatedly removing blood pressure cuff and leaving AMA.
[2021-08-12] MEDS ORDERED: LEVO500T90 PO (18:07)
--- NOTE | 2021-08-12 18:08 | NUR ---
Dr. Garcia called stating he will send prescription order to [facility] on [address]. Called patients contact (mother) number listed for Ivan to let him know he has antibiotics sent to [facility] on [address].
[2021-08-12] MEDS ORDERED: K and/or MAG REPLACEMENT MC SCH (20:00)
[2021-08-12] MEDS ORDERED: docusate sod 100mg capsule PO SCH (20:00)
[2021-08-12] MEDS ORDERED: temazepam 15mg capsule PO PRN (21:00)
[2021-08-13] MEDS ORDERED: VANCOMYCIN LEVEL IV ONE (06:30)
== END 2021-08-12 16:15 | disposition left against medical advice (07) | DRG 603 ==
LOC: ER 00:17 → ED HOLD 08:23 → EDBEDREQ 10:50 → SUR 3N 14:50
PROVIDERS: ADMIT Family Medicine; ATTEND Family Medicine
PROC: BP2T1ZZ Computerized Tomography (CT Scan) of Right Upper Extremity using Low Osmolar Contrast (ICD-10-PCS; 2021-08-12)
PROC: 06HY33Z Insertion of Infusion Device into Lower Vein, Percutaneous Approach (ICD-10-PCS; 2021-08-12)
PROC: B54BZZA Ultrasonography of Right Lower Extremity Veins, Guidance (ICD-10-PCS; 2021-08-12)
PROC: 0J9D0ZZ Drainage of Right Upper Arm Subcutaneous Tissue and Fascia, Open Approach (ICD-10-PCS; 2021-08-12)
PROC: 3E0234Z Introduction of Serum, Toxoid and Vaccine into Muscle, Percutaneous Approach (ICD-10-PCS; principal; 2021-08-12 12:35)
DX: L03.113 Cellulitis of right upper limb (principal); E87.6 Hypokalemia; L02.413 Cutaneous abscess of right upper limb; Z20.822 Contact with and (suspected) exposure to COVID-19; F15.90 Other stimulant use, unspecified, uncomplicated; F11.90 Opioid use, unspecified, uncomplicated; F32.A Depression, unspecified; F41.9 Anxiety disorder, unspecified; G47.30 Sleep apnea, unspecified; G89.29 Other chronic pain; M54.9 Dorsalgia, unspecified; Z53.29 Procedure and treatment not carried out because of patient's decision for other reasons; F20.9 Schizophrenia, unspecified; J45.909 Unspecified asthma, uncomplicated; Z23 Encounter for immunization; Z88.8 Allergy status to other drugs, medicaments and biological substances; Z56.0 Unemployment, unspecified; Z59.00 Homelessness unspecified
CPT/HCPCS: 36415; 73200; 73201; 80053; 80305; 83605; 83735; 84132; 84145; 85025; 85651; 86140; 87040; 87070; 87075; 87077; 87186; 87635; 90715; 93005; 99282; 99285; A4618; A6253; A6446; A6449; A7000; C9803; G0378; J0131; J1100; J1885; J2060; J2250; J2270; J2405; J2543; J2704; J3010; J3370; J3490; J7030; Q9967

== ENCOUNTER 2021-08-13 19:40 | Emergency (ER) | payer MEDICARE, MEDICAID ==
[~2021-08-13] VITALS: Ht 177.8 cm; Wt 100.0 kg
[~2021-08-13 19:40] MED LIST changes: -ACET-3414 PO; -ALPR2TAB2 PO; -ALPR2TAB7 PO; -CLIN-97 PO; -CLON-527 PO; -CLON-528 PO; -CLON0.2T PO; -CYCL-1 PO; -DOCU100C40 PO; -GABA-530 PO; -GABA-532 PO; -HALO1TAB PO; -HALO2TAB PO; -HALO5TAB PO; -HYDR-4383 PO; -HYDR28CR14 TOP; -INSU100I31 SQ; +LEVO500T90 PO; -LURA40TA2 PO; -LURA80TA2 PO; -MUPI22OI30 TOP; -NALO4SPR NAS; -NAPR500T6 PO; -OLAN5TAB75 PO; -ONDA4TAB12 PO; -PROM12.512 PO; -QUET25TA PO; -QUET50TA PO; -TRAZ-251 PO
[2021-08-13 20:01] VITALS: BP 112/65
== END 2021-08-13 22:44 | disposition home or self-care (01) ==
LOC: ER 19:41
DX: L02.413 Cutaneous abscess of right upper limb (principal); J45.909 Unspecified asthma, uncomplicated; G47.30 Sleep apnea, unspecified; E11.9 Type 2 diabetes mellitus without complications; G89.29 Other chronic pain; F17.200 Nicotine dependence, unspecified, uncomplicated; Z86.19 Personal history of other infectious and parasitic diseases; Z56.0 Unemployment, unspecified; Z59.00 Homelessness unspecified; Z88.1 Allergy status to other antibiotic agents; Z79.2 Long term (current) use of antibiotics
CPT/HCPCS: 99282

== ENCOUNTER 2021-08-22 07:37 | Emergency (ER) | payer MEDICARE, MEDICAID ==
[~2021-08-22] VITALS: Ht 177.8 cm; Wt 100.0 kg
[2021-08-22] MEDS ORDERED: acetaminophen 325mg tablet PO ONE (08:15)
[2021-08-22 09:00] VITALS: BP 113/68
== END 2021-08-22 09:02 | disposition home or self-care (01) ==
LOC: ER 07:38
DX: R09.81 Nasal congestion (principal); J45.909 Unspecified asthma, uncomplicated; E11.9 Type 2 diabetes mellitus without complications; F32.9 Major depressive disorder, single episode, unspecified; F20.9 Schizophrenia, unspecified; Z88.1 Allergy status to other antibiotic agents; Z79.899 Other long term (current) drug therapy; Z59.00 Homelessness unspecified; Z56.0 Unemployment, unspecified
CPT/HCPCS: 99282

== ENCOUNTER 2021-09-23 20:47 | Emergency (ER) | payer MEDICARE, MEDICAID ==
[~2021-09-23] VITALS: Ht 177.8 cm; Wt 100.0 kg
[2021-09-23 20:59] VITALS: BP 124/73
[2021-09-23] MEDS ORDERED: SULF1TAB49 PO (21:47)
[2021-09-23] MEDS ORDERED: sulfamethoxazole/trimethoprim DS (800/160mg) tablet PO ONE (21:50)
== END 2021-09-23 22:06 | disposition home or self-care (01) ==
LOC: ER 20:47
DX: S90.512A Abrasion, left ankle, initial encounter (principal); L03.116 Cellulitis of left lower limb; Z88.1 Allergy status to other antibiotic agents; J45.909 Unspecified asthma, uncomplicated; G47.30 Sleep apnea, unspecified; E11.9 Type 2 diabetes mellitus without complications; G89.29 Other chronic pain; Z86.19 Personal history of other infectious and parasitic diseases; Z56.0 Unemployment, unspecified; Z59.00 Homelessness unspecified; Z79.899 Other long term (current) drug therapy; W54.0XXA Bitten by dog, initial encounter; Y93.89 Activity, other specified; Y92.89 Other specified places as the place of occurrence of the external cause; Y99.8 Other external cause status
CPT/HCPCS: 99283

== ENCOUNTER 2021-09-24 03:11 | Emergency (ER) | payer MEDICARE, MEDICAID ==
[~2021-09-24 03:11] MED LIST changes: -LEVO500T90 PO; +SULF1TAB49 PO
== END 2021-09-24 04:10 | disposition left against medical advice (07) ==
LOC: ER 03:12
DX: R69 Illness, unspecified (principal); Z53.21 Procedure and treatment not carried out due to patient leaving prior to being seen by health care provider

== ENCOUNTER 2021-10-03 07:35 | Emergency (ER) | payer MEDICARE, MEDICAID ==
[~2021-10-03] VITALS: Ht 170.2 cm; Wt 90.9 kg
[2021-10-03 07:41] VITALS: BP 124/79
== END 2021-10-03 17:55 | disposition left against medical advice (07) ==
LOC: ER 07:36
DX: M25.562 Pain in left knee (principal); Z53.21 Procedure and treatment not carried out due to patient leaving prior to being seen by health care provider

== ENCOUNTER 2021-10-11 07:33 | Emergency (ER) | payer MEDICARE, MEDICAID ==
[~2021-10-11] VITALS: Ht 177.8 cm; Wt 85.2 kg
[2021-10-11 07:40] VITALS: BP 122/75
== END 2021-10-11 11:09 | disposition left against medical advice (07) ==
LOC: ER 07:34
DX: F20.9 Schizophrenia, unspecified (principal); Z53.21 Procedure and treatment not carried out due to patient leaving prior to being seen by health care provider

== ENCOUNTER 2021-10-29 19:42 | Emergency (ER) | payer MEDICARE, MEDICAID ==
[~2021-10-29] VITALS: Ht 177.8 cm; Wt 90.9 kg
[2021-10-29 20:04] VITALS: BP 113/71
[2021-10-29] MEDS ORDERED: MUPI22OI30 TOP (23:02)
[2021-10-29] MEDS ORDERED: CLOT24CR2 TOP (23:02)
== END 2021-10-29 23:17 | disposition home or self-care (01) ==
LOC: ER 19:42
DX: S90.912A Unspecified superficial injury of left ankle, initial encounter (principal); S90.425A Blister (nonthermal), left lesser toe(s), initial encounter; J45.909 Unspecified asthma, uncomplicated; G47.30 Sleep apnea, unspecified; E11.9 Type 2 diabetes mellitus without complications; G89.29 Other chronic pain; F11.90 Opioid use, unspecified, uncomplicated; Z86.19 Personal history of other infectious and parasitic diseases; Z56.0 Unemployment, unspecified; Z59.00 Homelessness unspecified; Z88.1 Allergy status to other antibiotic agents; Z79.2 Long term (current) use of antibiotics; Z79.899 Other long term (current) drug therapy; W26.8XXA Contact with other sharp object(s), not elsewhere classified, initial encounter; Y93.89 Activity, other specified; Y92.89 Other specified places as the place of occurrence of the external cause; Y99.8 Other external cause status
CPT/HCPCS: 99283

== ENCOUNTER 2021-11-02 17:16 | Emergency (ER) | payer MEDICARE, MEDICAID ==
[~2021-11-02] VITALS: Ht 177.8 cm; Wt 90.0 kg
[~2021-11-02 17:16] MED LIST changes: +CLOT24CR2 TOP; +MUPI22OI30 TOP; -SULF1TAB49 PO
[2021-11-02 17:23] VITALS: BP 182/61
[2021-11-02] MEDS ORDERED: ALBU8HFA PO (17:26)
== END 2021-11-02 17:40 | disposition home or self-care (01) ==
LOC: ER 17:18
DX: J45.909 Unspecified asthma, uncomplicated (principal); Z76.0 Encounter for issue of repeat prescription; E11.9 Type 2 diabetes mellitus without complications; G89.29 Other chronic pain; M54.9 Dorsalgia, unspecified; F41.9 Anxiety disorder, unspecified; F20.9 Schizophrenia, unspecified; Z59.00 Homelessness unspecified; Z88.1 Allergy status to other antibiotic agents; Z79.899 Other long term (current) drug therapy
CPT/HCPCS: 99281

== ENCOUNTER 2021-11-11 18:40 | Emergency (ER) | payer MEDICARE, MEDICAID ==
[~2021-11-11 18:40] MED LIST changes: +ALBU8HFA PO; -MUPI22OI30 TOP
== END 2021-11-11 18:48 | disposition left against medical advice (07) ==
LOC: ER 18:40
DX: Z00.00 Encounter for general adult medical examination without abnormal findings (principal); Z53.21 Procedure and treatment not carried out due to patient leaving prior to being seen by health care provider

== ENCOUNTER 2021-12-03 11:07 | Emergency (ER) | payer MEDICARE, MEDICAID ==
[~2021-12-03] VITALS: Ht 171.4 cm; Wt 95.5 kg
[2021-12-03 11:25] VITALS: BP 117/72
[2021-12-03] MEDS ORDERED: LORazepam 1 MG tablet PO ONE (13:40)
[2021-12-03] MEDS ORDERED: LURA80TA2 PO (13:50)
[2021-12-03] MEDS ORDERED: ATI1T PO (13:50)
== END 2021-12-03 14:03 | disposition home or self-care (01) ==
LOC: ER 11:09
DX: F41.9 Anxiety disorder, unspecified (principal); J45.909 Unspecified asthma, uncomplicated; E11.9 Type 2 diabetes mellitus without complications; G89.29 Other chronic pain; M54.9 Dorsalgia, unspecified; F32.A Depression, unspecified; F20.9 Schizophrenia, unspecified; Z59.00 Homelessness unspecified; Z56.0 Unemployment, unspecified; F11.10 Opioid abuse, uncomplicated; Z88.1 Allergy status to other antibiotic agents; Z79.899 Other long term (current) drug therapy
CPT/HCPCS: 99283

== ENCOUNTER 2022-01-07 13:23 | Emergency (ER) | payer MEDICARE, MEDICAID ==
[~2022-01-07] VITALS: Ht 180.3 cm; Wt 93.2 kg
[~2022-01-07 13:23] MED LIST changes: -ALBU8HFA PO; +ATI1T PO; +LURA80TA2 PO
[2022-01-07] MEDS ORDERED: ATI1T PO (13:44)
[2022-01-07] MEDS ORDERED: LURA80TA2 PO (13:44)
== END 2022-01-07 13:44 | disposition home or self-care (01) ==
LOC: ER 13:23
DX: S40.922A Unspecified superficial injury of left upper arm, initial encounter (principal); S40.921A Unspecified superficial injury of right upper arm, initial encounter; J45.909 Unspecified asthma, uncomplicated; E11.9 Type 2 diabetes mellitus without complications; G89.29 Other chronic pain; M54.9 Dorsalgia, unspecified; F31.9 Bipolar disorder, unspecified; F20.9 Schizophrenia, unspecified; Z59.00 Homelessness unspecified; Z56.0 Unemployment, unspecified; X58.XXXA Exposure to other specified factors, initial encounter; Y93.89 Activity, other specified; Y92.89 Other specified places as the place of occurrence of the external cause; Y99.8 Other external cause status
CPT/HCPCS: 99281

== ENCOUNTER 2022-03-06 15:01 | Emergency (ER) | payer MEDICARE, MEDICAID ==
[~2022-03-06] VITALS: Ht 177.8 cm; Wt 95.5 kg
[2022-03-06 15:33] VITALS: BP 127/75
[2022-03-06] MEDS ORDERED: GABA-534 PO (16:14)
[2022-03-06] MEDS ORDERED: LURA80TA2 PO (16:14)
== END 2022-03-06 16:25 | disposition home or self-care (01) ==
LOC: ER 15:02
DX: Z76.0 Encounter for issue of repeat prescription (principal); Z00.00 Encounter for general adult medical examination without abnormal findings; J45.909 Unspecified asthma, uncomplicated; E11.9 Type 2 diabetes mellitus without complications; G89.29 Other chronic pain; M54.50 Low back pain, unspecified; Z86.59 Personal history of other mental and behavioral disorders; Z88.1 Allergy status to other antibiotic agents; Z59.00 Homelessness unspecified; Z56.0 Unemployment, unspecified
CPT/HCPCS: 99281

== ENCOUNTER 2022-03-23 14:39 | Emergency (ER) | payer MEDICARE, MEDICAID ==
[~2022-03-23] VITALS: Ht 179.1 cm; Wt 93.0 kg
[~2022-03-23 14:39] MED LIST changes: +GABA-534 PO
[2022-03-23 15:32] VITALS: BP 129/66
[2022-03-23] MEDS ORDERED: HYDR-3686 PO (17:00)
[2022-03-23] MEDS ORDERED: LORazepam 1 MG tablet PO ONE (17:05)
== END 2022-03-23 18:00 | disposition home or self-care (01) ==
LOC: ER 14:40
DX: Z76.0 Encounter for issue of repeat prescription (principal); F41.9 Anxiety disorder, unspecified; J45.909 Unspecified asthma, uncomplicated; E11.9 Type 2 diabetes mellitus without complications; G89.29 Other chronic pain; M54.50 Low back pain, unspecified; Z88.1 Allergy status to other antibiotic agents; Z56.0 Unemployment, unspecified; Z59.00 Homelessness unspecified
CPT/HCPCS: 99283

== ENCOUNTER 2022-03-30 01:51 | Emergency (ER) | payer MEDICARE, MEDICAID ==
[~2022-03-30] VITALS: Ht 177.8 cm; Wt 95.5 kg
[~2022-03-30 01:51] MED LIST changes: +HYDR-3686 PO
[2022-03-30 03:12] LABS: BASOPHILS # (AUTO) 0.1 X10'3 (0-0.2); BASOPHILS % (AUTO) 0.7 % (0-1); EOSINOPHILS # (AUTO) 0.2 X10'3 (0-0.9); EOSINOPHILS % (AUTO) 2.1 % (0-6); HEMATOCRIT 41.1 % (42.0-52.0); LYMPHOCYTES # (AUTO) 2.8 X10'3 (1.1-4.8); LYMPHOCYTES % (AUTO) 28.6 % (21-51); MEAN CORPUSCULAR HEMOGLOBIN 31.4 PG (27.0-31.0); MEAN CORPUSCULAR HGB CONC 33.9 g/dL (33.0-36.5); MEAN CORPUSCULAR VOLUME 92.5 FL (78-98); MEAN PLATELET VOLUME 7.7 FL (7.4-10.4); MONOCYTES # (AUTO) 0.8 X10'3 (0-0.9); MONOCYTES % (AUTO) 8.3 % (2-12); NEUTROPHILS % (AUTO) 60.3 % (42-75); PLATELET COUNT 441 X10'3 (140-440); RED BLOOD COUNT 4.45 X10'6 (4.70-6.10); RED CELL DISTRIBUTION WIDTH 13.5 % (11.5-14.5)
[2022-03-30 03:12] LABS: CLARITY,URINE SLIGHTLY CLOUDY (Clear); COLOR,URINE YELLOW (Yellow); GLUCOSE, URINE NEGATIVE (Neg); KETONES,URINE NEGATIVE (Neg); LEUKOCYTE ESTERASE ,URINE NEGATIVE (Neg); NITRITES, URINE NEGATIVE (Neg); OCCULT BLOOD,URINE NEGATIVE (Neg); PH,URINE 5.5 (4.8-8.0); PROTEIN,URINE 30 mg/dl (Neg); UROBILINOGEN,URINE 0.2 E.U/dL (0.2-1.0)
[2022-03-30 03:15] LABS: ALANINE AMINOTRANSFERASE 43 U/L (12-78); ALBUMIN 3.8 G/DL (3.4-5.0); ALKALINE PHOSPHATASE 59 IU/L (46-116); ANION GAP 9 (8-16); ASPARTATE AMINO TRANSFERASE 30 U/L (10-37); BILIRUBIN,TOTAL 0.5 MG/DL (0.1-1.0); BLOOD UREA NITROGEN 19 MG/DL (7-18); BUN/CREATININE RATIO 23.5 (5.4-32.0); CALCIUM 9.2 MG/DL (8.5-10.1); CHLORIDE 105 MMOL/L (99-107); CREATININE 0.81 MG/DL (0.60-1.10); GLUCOSE 106 MG/DL (70-104); LIPASE 61 U/L (73-393); POTASSIUM 3.3 MMOL/L (3.5-5.1); SODIUM 142 MMOL/L (135-145); TOTAL PROTEIN 7.5 G/DL (6.4-8.2); eGFR > 90 ML/MIN
[2022-03-30 03:38] LABS: BACTERIA,URINE FEW /HPF (Neg); HYALINE CASTS 0-3 /LPF (NEGATIVE); MUCUS STRANDS FEW /LPF (Neg); RBC,URINE 0-2 /HPF (0-2); SQUAMOUS EPITHELIAL CELL,UR MODERATE /LPF (FEW); UA COLLECTION TYPE CLN CATCH MIDSTREAM
[2022-03-30] MEDS ORDERED: ondansetron 4mg/5ml UD cup PO ONE (04:55)
[2022-03-30] MEDS ORDERED: pantoprazole 40mg Tablet.DR PO ONE (04:55)
[2022-03-30] MEDS ORDERED: ondansetron 4 MG/5 ML oral solution 5ml CUP PO ONE (04:55)
[2022-03-30] MEDS ORDERED: PANT-47 PO (04:56)
[2022-03-30 05:35] VITALS: BP 103/57
== END 2022-03-30 05:37 | disposition home or self-care (01) ==
LOC: ER 01:52
DX: Z00.00 Encounter for general adult medical examination without abnormal findings (principal); J45.909 Unspecified asthma, uncomplicated; E11.9 Type 2 diabetes mellitus without complications; G89.29 Other chronic pain; M54.50 Low back pain, unspecified; Z88.1 Allergy status to other antibiotic agents; Z59.00 Homelessness unspecified; Z56.0 Unemployment, unspecified
CPT/HCPCS: 36415; 80053; 81001; 83690; 85025; 87088; 99283

== ENCOUNTER 2022-04-02 20:10 | Emergency (ER) | payer MEDICARE, MEDICAID ==
[~2022-04-02] VITALS: Ht 179.1 cm; Wt 93.0 kg
[~2022-04-02 20:10] MED LIST changes: +PANT-47 PO
[2022-04-02 20:35] VITALS: BP 129/71
== END 2022-04-03 04:48 | disposition left against medical advice (07) ==
LOC: ER 20:11
DX: F29 Unspecified psychosis not due to a substance or known physiological condition (principal); Z53.21 Procedure and treatment not carried out due to patient leaving prior to being seen by health care provider

== ENCOUNTER 2022-04-03 19:10 | Emergency (ER) | payer MEDICARE, MEDICAID ==
[~2022-04-03] VITALS: Ht 177.8 cm; Wt 195.4 kg
[2022-04-03 21:25] VITALS: BP 115/68
== END 2022-04-04 01:04 | disposition left against medical advice (07) ==
LOC: ER 19:11
DX: Z76.0 Encounter for issue of repeat prescription (principal); Z53.21 Procedure and treatment not carried out due to patient leaving prior to being seen by health care provider

== ENCOUNTER 2022-04-23 17:30 | Emergency (ER) | payer MEDICARE, MEDICAID ==
[~2022-04-23 17:30] MED LIST changes: -HYDR-3686 PO
[2022-04-23] MEDS ORDERED: HYDR-3686 PO (22:09)
[2022-04-23] MEDS ORDERED: LURA80TA2 PO (22:09)
== END 2022-04-23 18:59 | disposition left against medical advice (07) ==
LOC: ER 17:31
DX: R51.9 Headache, unspecified (principal); Z53.21 Procedure and treatment not carried out due to patient leaving prior to being seen by health care provider; H92.09 Otalgia, unspecified ear

== ENCOUNTER 2022-04-23 21:23 | Emergency (ER) | payer MEDICARE, MEDICAID ==
[~2022-04-23] VITALS: Ht 177.8 cm; Wt 90.9 kg
[2022-04-23 21:30] VITALS: BP 136/76
--- NOTE | 2022-04-23 21:51 | NUR ---
PT REQUESTING LATUDA, PT RAN OUT FOR PRESCRIPTION ONE MONTH AGO.
[2022-04-23] MEDS ORDERED: LURA80TA2 PO (22:09)
[2022-04-23] MEDS ORDERED: HYDR-3686 PO (22:09)
[2022-04-23] MEDS ORDERED: lurasidone 20mg tablet PO SCH (22:10)
[2022-04-23] MEDS: lurasidone 20mg tablet PO SCH ×2 (22:16→22:17)
== END 2022-04-23 22:18 | disposition home or self-care (01) ==
LOC: ER 21:25
DX: F29 Unspecified psychosis not due to a substance or known physiological condition (principal); Z76.0 Encounter for issue of repeat prescription; J45.909 Unspecified asthma, uncomplicated; G89.29 Other chronic pain; F31.9 Bipolar disorder, unspecified; F20.9 Schizophrenia, unspecified; Z56.0 Unemployment, unspecified; Z59.00 Homelessness unspecified; Z88.1 Allergy status to other antibiotic agents; Z79.899 Other long term (current) drug therapy
CPT/HCPCS: 99283

== ENCOUNTER 2022-04-24 00:09 | Emergency (ER) | payer MEDICARE, MEDICAID ==
[~2022-04-24 00:09] MED LIST changes: +HYDR-3686 PO
== END 2022-04-24 00:19 | disposition left against medical advice (07) ==
LOC: ER 00:11
DX: J00 Acute nasopharyngitis [common cold] (principal); Z53.21 Procedure and treatment not carried out due to patient leaving prior to being seen by health care provider

== ENCOUNTER 2022-04-27 16:13 | Emergency (ER) | payer MEDICARE, MEDICAID ==
[~2022-04-27] VITALS: Ht 177.8 cm; Wt 90.0 kg
[2022-04-27 17:21] VITALS: BP 109/60
== END 2022-04-27 18:02 | disposition home or self-care (01) ==
LOC: ER 16:14
DX: Z02.89 Encounter for other administrative examinations (principal); J45.909 Unspecified asthma, uncomplicated; E11.9 Type 2 diabetes mellitus without complications; G89.29 Other chronic pain; F32.A Depression, unspecified; F20.9 Schizophrenia, unspecified; F11.90 Opioid use, unspecified, uncomplicated; Z98.890 Other specified postprocedural states; Z56.0 Unemployment, unspecified; Z59.00 Homelessness unspecified; Z88.1 Allergy status to other antibiotic agents; Z79.899 Other long term (current) drug therapy
CPT/HCPCS: 99281

== ENCOUNTER 2022-05-02 17:08 | Emergency (ER) | payer MEDICARE, MEDICAID | END 2022-05-02 18:55 | disposition left against medical advice (07) | LOC: ER 17:09 | DX: H92.09 Otalgia, unspecified ear (principal); Z53.21 Procedure and treatment not carried out due to patient leaving prior to being seen by health care provider ==

== ENCOUNTER 2022-07-13 18:36 | Emergency (ER) | payer MEDICARE, MEDICAID ==
[~2022-07-13] VITALS: Ht 177.8 cm; Wt 84.1 kg
[~2022-07-13 18:36] MED LIST changes: -HYDR-3686 PO
[2022-07-13 18:40] VITALS: BP 119/69
[2022-07-13] MEDS ORDERED: LURA80TA2 PO ×2 (20:49→20:51)
[2022-07-13] MEDS ORDERED: ALBU8HFA PO ×2 (20:49→20:51)
== END 2022-07-13 21:02 | disposition home or self-care (01) ==
LOC: ER 18:37
DX: Z76.0 Encounter for issue of repeat prescription (principal); J45.909 Unspecified asthma, uncomplicated; F20.9 Schizophrenia, unspecified; E11.9 Type 2 diabetes mellitus without complications; G89.29 Other chronic pain; M54.50 Low back pain, unspecified; Z88.1 Allergy status to other antibiotic agents; Z59.00 Homelessness unspecified; Z56.0 Unemployment, unspecified
CPT/HCPCS: 99281; 99283

== ENCOUNTER 2022-07-29 21:22 | Emergency (ER) | payer MEDICARE, MEDICAID ==
[~2022-07-29] VITALS: Ht 177.8 cm; Wt 90.9 kg
[~2022-07-29 21:22] MED LIST changes: +ALBU8HFA PO
[2022-07-29 22:21] VITALS: BP 134/75
[2022-07-30] MEDS ORDERED: diphenhydrAMINE 25mg capsule PO ONE (04:45)
== END 2022-07-30 05:03 | disposition home or self-care (01) ==
LOC: ER 21:22
DX: G47.00 Insomnia, unspecified (principal); Z76.0 Encounter for issue of repeat prescription; J45.909 Unspecified asthma, uncomplicated; G89.29 Other chronic pain; M54.9 Dorsalgia, unspecified; F31.9 Bipolar disorder, unspecified; F20.9 Schizophrenia, unspecified; Z59.00 Homelessness unspecified; Z56.0 Unemployment, unspecified; Z88.1 Allergy status to other antibiotic agents; Z79.899 Other long term (current) drug therapy; Z79.1 Long term (current) use of non-steroidal anti-inflammatories (NSAID); Z79.2 Long term (current) use of antibiotics
CPT/HCPCS: 99282; Q0163